=== PATIENT | female | born 1955 | race Caucasian/White ===

== ENCOUNTER 2016-06-05 09:53 | Emergency (ER) | payer MEDICARE ==
--- NOTE | 2016-06-05 10:29 | EDM.PDOC ---
ED HPI GENERAL MEDICAL PROBLEM - General Chief Complaint: ENT Problem Stated Complaint: TOOTH ACHE Time Seen by Provider: 06/05/16 10:25 Source of Information: Reports: Patient History Limitations: Reports: Other - History of Present Illness INITIAL COMMENTS - FREE TEXT/NARRATIVE: History of present illness: [61-year-old female comes in complaining of oral pain. Indicates that she has pain in the upper and lower jaw on the left there has been ongoing.] Review of systems: As per history of present illness and below otherwise all systems reviewed and negative. Past medical history: As per history of present illness and as reviewed below otherwise noncontributory. Surgical history: As per history of present illness and as reviewed below otherwise noncontributory. Social history: No reported history of drug or alcohol abuse. Family history: As per history of present illness and as reviewed below otherwise noncontributory. Physical exam: HEENT: Atraumatic, normocephalic, pupils reactive, negative for conjunctival pallor or scleral icterus, mucous membranes moist, throat clear, neck supple, nontender, trachea midline. Lungs: Clear to auscultation, breath sounds equal bilaterally, chest nontender. Heart: S1S2, regular, negative for clicks, rubs, or JVD. Abdomen: Soft, nondistended, nontender. Negative for masses or hepatosplenomegaly. Negative for costovertebral tenderness. Pelvis: Stable nontender. Genitourinary: Deferred. Rectal: Deferred. Extremities: Atraumatic, negative for cords or calf pain. Neurovascular unremarkable. Neuro: Awake, alert, oriented. Cranial nerves II through XII unremarkable. Cerebellum unremarkable. Motor and sensory unremarkable throughout. Exam nonfocal. Oral exam: On inspection patient has several missing teeth as well as multiple fillings in the 14 through 19 region. An area in the upper left, exhibiting area of erythema and potential abscess Diagnostics: [] Therapeutics: [] Impression: [Dental abscess] Plan: [Augmentin, brief run of T- 3] Definitive disposition and diagnosis as appropriate pending reevaluation and review of above. - Related Data Allergies Allergy/AdvReac Type Severity Reaction Status Date / Time meperidine HCl [From Demerol] Allergy Rash Verified 01/08/16 13:10 Home Meds: Home Meds Amoxicillin/Potassium Clav [Augmentin 875-125 Tablet] 1 each PO BID #20 tablet 06/05/16 [Rx] Past Medical History HEENT History: Reports: Other (see below) Other HEENT History: deaf Cardiovascular History: Reports: None Respiratory History: Reports: None Gastrointestinal History: Reports: Other (see below) Other Gastrointestinal History: Hernia left [employer] History: Reports: None Musculoskeletal History: Reports: None Neurological History: Reports: Migraines Psychiatric History: Reports: None Endocrine/Metabolic History: Reports: None Hematologic History: Reports: None Immunologic History: Reports: None Oncologic (Cancer) History: Reports: None Dermatologic History: Reports: None - Infectious Disease History Infectious Disease History: Reports: None - Past Surgical History Head Surgeries/Procedures: Reports: None Other HEENT Surgeries/Procedures: cochleor implant right ear. GI Surgical History: Reports: Hernia, inguinal Other GI Surgeries/Procedures: left Female Surgical History: Reports: section Social & Family History - Tobacco Use Smoking Status *Q: Never Smoker Second Hand Smoke Exposure: No - Caffeine Use Caffeine Use: Reports: Other - Recreational Drug Use Recreational Drug Use: No ED ROS GENERAL - Review of Systems Review Of Systems: See Below (See history of present illness) ED EXAM, GENERAL - Physical Exam Exam: See Below (See history of present illness) Course - Vital Signs Last Recorded V/S: Last Vital Signs Temp 36.5 C 06/05/16 10:06 Pulse 84 06/05/16 10:06 Resp 18 06/05/16 10:06 BP 214/109 H 06/05/16 10:06 Pulse Ox 98 06/05/16 10:06 Departure - Departure Time of Disposition: 10:30 Disposition: Home, Self-Care 01 Condition: good Clinical Impression: Dental abscess Prescriptions: Amoxicillin/Potassium Clav [Augmentin 875-125 Tablet] 1 each PO BID #20 tablet Referrals: PCP,None [Primary Care Provider] - Samantha River PA [Physician [employer]] - Forms: ED Department Discharge Additional Instructions: The following information is given to patients seen in the emergency department who are being discharged to home. This information is to outline your options for follow-up care. We provide all patients seen in our emergency department with a follow-up referral. The need for follow-up, as well as the timing and circumstances, are variable depending upon the specifics of your emergency department visit. If you don't have a primary care physician on staff, we will provide you with a referral. We always advise you to contact your personal physician following an emergency department visit to inform them of the circumstance of the visit and for follow-up with them and/or the need for any referrals to a consulting specialist. The emergency department will also refer you to a specialist when appropriate. This referral assures that you have the opportunity for follow-up care with a specialist. All of these measure are taken in an effort to provide you with optimal care, which includes your follow-up. Under all circumstances we always encourage you to contact your private physician who remains a resource for coordinating your care. When calling for follow-up care, please make the office aware that this follow-up is from your recent emergency room visit. If for any reason you are refused follow-up, please contact the [facility] Emergency Department at and asked to speak to the emergency department charge nurse. Take medication as directed Followup with the dentist MANDI Return to ER as needed as discussed
[2016-06-05 10:53] VITALS: BP 186/97
== END 2016-06-05 10:47 | disposition home or self-care (01) ==
LOC: MW.ED 09:53
DX: K04.7 Periapical abscess without sinus (principal); Z88.8 Allergy status to other drugs, medicaments and biological substances; Z98.890 Other specified postprocedural states
CPT/HCPCS: 99282; 99283

== ENCOUNTER 2016-09-18 14:25 | Emergency (ER) | payer MEDICARE, SELFPAY ==
--- NOTE | 2016-09-18 15:07 | EDM.PDOC ---
ED HPI GENERAL MEDICAL PROBLEM - General Chief Complaint: Headache Stated Complaint: MIGRANE Time Seen by Provider: 09/18/16 14:58 Source of Information: Reports: Patient History Limitations: Reports: No Limitations - History of Present Illness INITIAL COMMENTS - FREE TEXT/NARRATIVE: HISTORY AND PHYSICAL: [] 61-year-old female presenting with headache History of Present Illness: []Patient has been deaf and is we are using [employer] system to communicate. She does have a note with her stating that she was just informed that her son had committed suicide by hanging himself in [place]. She has had difficulty with sleeping for the last 2 days and increased anxiety. Headache began last night one episode of emesis She does report headache as being similar to migraines she has had in the past Patient did drive herself to the hospital Review of Systems: As per history of present illness and below otherwise all systems reviewed and negative. Past medical history: As per history of present illness and as reviewed below otherwise noncontributory. Surgical history: As per history of present illness and as reviewed below otherwise noncontributory. Social history: No reported history of drug or alcohol abuse. Family history: As per history of present illness and as reviewed below otherwise noncontributory. Physical exam: Alert and oriented female, and when signing answers appropriately. Finally teary -eyed HEENT: Atraumatic, normocehpalic, pupils reactive, negative for conjunctival pallor or scleral icterus, mucous membranes moist, throat clear, neck supple, nontender, trachea midline. Lungs: Clear to auscultation, breath sounds equal bilaterally, chest non tender. Heart: S1S2, regular, negative for clicks, rubs, or JVD. Abdomen: Soft, nondistended, nontender. Negative for masses or hepatossplenmegaly. Negative for costovertebral tenderness. Pelvis: Stable nontender. Genitourinary: Deferred. Rectal: Deferred Extremities: Atraumatic, negative for cords or calf pain. Neurovascular unremarkable. Neuro: Awake, alert, oriented. Cranial nerves II through XII unremarkable. Cerebellum unremarkable. Motor and sensory unremarkable throughout. Exam nonfocal. Diagnostics: [] Therapeutics: [IV fluids, Benadryl and Toradol] Impression: [Migraine headache Anxiety Grief ] Plan: [Home Rest when you get home Some medication will be given to help you sleep] Definitive disposition and diagnosis as appropriate pending reevaluation and review of above. Onset: Sudden Duration: Day(s): (1) Location: Reports: Head, Generalized Headache Pain Score (Numeric/FACES): 7 - Related Data Allergies Allergy/AdvReac Type Severity Reaction Status Date / Time meperidine HCl [From Demerol] Allergy Rash Verified 09/18/16 15:09 Past Medical History HEENT History: Reports: Other (See Below) Other HEENT History: deaf Cardiovascular History: Reports: None Respiratory History: Reports: None Gastrointestinal History: Reports: Other (See Below) Other Gastrointestinal History: Hernia left [employer] History: Reports: None Musculoskeletal History: Reports: None Neurological History: Reports: Migraines Psychiatric History: Reports: None Endocrine/Metabolic History: Reports: None Hematologic History: Reports: None Immunologic History: Reports: None Oncologic (Cancer) History: Reports: None Dermatologic History: Reports: None - Infectious Disease History Infectious Disease History: Reports: None - Past Surgical History GI Surgical History: Reports: Hernia, Inguinal Female Surgical History: Reports: Section Social & Family History - Tobacco Use Smoking Status *Q: Never Smoker Second Hand Smoke Exposure: No - Caffeine Use Caffeine Use: Reports: Other - Recreational Drug Use Recreational Drug Use: No ED ROS GENERAL - Review of Systems Review Of Systems: ROS reveals no pertinent complaints other than HPI. - Physical Exam Exam: See Below (See dictation) Course - Vital Signs Last Recorded V/S: Last Vital Signs Temp 36.3 C 09/18/16 15:07 Pulse 105 H 09/18/16 15:07 Resp 18 09/18/16 15:07 BP 182/122 H 09/18/16 15:07 Pulse Ox 98 09/18/16 15:07 - Orders/Labs/Meds Meds: Medications Discontinued Medications Generic Name Dose Route Start Last Admin Trade Name Freq PRN Reason Stop Dose Admin Diphenhydramine HCl 25 mg 09/18/16 15:10 Benadryl IVPUSH 09/18/16 15:11 ONETIME ONE Sodium Chloride 1,000 mls @ 999 mls/hr 09/18/16 15:10 Normal Saline IV 09/18/16 16:10 STAT ONE Ketorolac Tromethamine 30 mg 09/18/16 15:10 Toradol IVPUSH 09/18/16 15:11 ONETIME ONE Ketorolac Tromethamine 60 mg 09/18/16 15:22 Toradol IM 09/18/16 15:23 ONETIME ONE Ketorolac Tromethamine 30 mg 09/18/16 15:23 09/18/16 15:28 Toradol IM 09/18/16 15:24 30 mg ONETIME ONE Administration Ondansetron HCl 4 mg 09/18/16 15:10 Zofran IVPUSH 09/18/16 15:11 ONETIME ONE Sodium Chloride 10 ml 09/18/16 15:10 Saline Flush FLUSH ASDIRECTED PRN Keep Vein Open Sodium Chloride 2.5 ml 09/18/16 15:10 Saline Flush FLUSH ASDIRECTED PRN Keep Vein Open Departure - Departure Time of Disposition: 15:24 Disposition: Home, Self-Care 01 Condition: Good Clinical Impression: Tension-type headache - Discharge Information Referrals: PCP,None [Primary Care Provider] - Forms: ED Department Discharge Additional Instructions: The following information is given to patients seen in the emergency department who are being discharged to home. This information is to outline your options for follow-up care. We provide all patients seen in our emergency department with a follow-up referral. The need for follow-up, as well as the timing and circumstances, are variable depending upon the specifics of your emergency department visit. If you don't have a primary care physician on staff, we will provide you with a referral. We always advise you to contact your personal physician following an emergency department visit to inform them of the circumstance of the visit and for follow-up with them and/or the need for any referrals to a consulting specialist. The emergency department will also refer you to a specialist when appropriate. This referral assures that you have the opportunity for followup care with a specialist. All of these measure are taken in an effort to provide you with optimal care, which includes your followup. Under all circumstances we always encourage you to contact your private physician who remains a resource for coordinating your care. When calling for followup care, please make the office aware that this follow-up is from your recent emergency room visit. If for any reason you are refused follow-up, please contact the [facility] emergency department at and asked to speak to the emergency department charge nurse. Take the Ativan when you get home to help with her headache and sleep prescription was written for 0.5 mg one at bedtime for anxiety/insomnia number of 5 tablets no refill Follow-up with your primary care provider Grief support groups are available call Charity Cao at [phone]
[2016-09-18] MEDS ORDERED: Sodium Chloride 0.9% 2.5 ML Syringe FLUSH PRN (15:10)
[2016-09-18] MEDS ORDERED: Sodium Chloride 0.9% 10 ML Syringe FLUSH PRN (15:10)
[2016-09-18] MEDS ORDERED: Sodium Chloride 0.9% 1,000 ML IV ONE (15:10)
[2016-09-18] MEDS ORDERED: diphenhydrAMINE 50 MG/ML SDV IVPUSH ONE (15:10)
[2016-09-18] MEDS ORDERED: Ondansetron 4 MG/2 ML SDV IVPUSH ONE (15:10)
[2016-09-18] MEDS ORDERED: Ketorolac 30 MG/ML SDV IVPUSH ONE (15:10)
[2016-09-18] MEDS ORDERED: Ketorolac 60 MG/2 ML SDV IM ONE (15:22)
[2016-09-18] MEDS ORDERED: Ketorolac 30 MG/ML SDV IM ONE (15:23)
[2016-09-18 16:10] VITALS: BP 191/128
== END 2016-09-18 16:09 | disposition home or self-care (01) ==
LOC: MW.ED 14:25
DX: G44.209 Tension-type headache, unspecified, not intractable (principal); G43.909 Migraine, unspecified, not intractable, without status migrainosus; F41.9 Anxiety disorder, unspecified; F43.21 Adjustment disorder with depressed mood; Z88.8 Allergy status to other drugs, medicaments and biological substances
CPT/HCPCS: 96372; 99284; J1885; 99283

== ENCOUNTER 2019-05-07 02:09 | Inpatient (IN) | payer MEDICARE, SELFPAY ==
[2019-05-07] MEDS ORDERED: Sodium Chloride 0.9% 10 ML Syringe FLUSH PRN (02:29)
[2019-05-07] MEDS ORDERED: Sodium Chloride 0.9% 2.5 ML Syringe FLUSH PRN (02:29)
[2019-05-07] MEDS ORDERED: Sodium Chloride 0.9% 1,000 ML IV ONE ×2 (02:30→04:30)
[2019-05-07 02:53] LABS: BLOOD UREA NITROGEN,BUN 67 mg/dL (7.0-18.0); CARBON DIOXIDE,CO2 19.3 mmol/L (21.0-32.0); CHLORIDE,CL 96 mmol/L (98-107); GLUCOSE RANDOM 143 mg/dL (74-106); POTASSIUM,K 3.8 mmol/L (3.5-5.1); SODIUM,NA 131 mmol/L (136-145)
--- NOTE | 2019-05-07 03:04 | CR ---
INDICATION: Shortness of breath and fever TECHNIQUE: Chest 1 views COMPARISON: Chest x-ray 12/27/2017 FINDINGS: Cardiovascular and mediastinum: Normal heart size with aortic tortuosity. Mild right hilar and superior mediastinal prominence, probably exacerbated by rotation. Lungs and pleural spaces: No pleural effusion or pneumothorax. No acute consolidation. Bones and soft tissues: No significant findings. IMPRESSION: No acute pulmonary consolidation. Dictated by Rob Larose MD @ May 07 2019 3:01AM Signed by Dr. Rob Larose @ May 07 2019 3:04AM
[2019-05-07] MEDS ORDERED: cefTRIAXone 1 GM in Sodium Chloride 0.9% 50 ML IV ONE (05:56)
[2019-05-07] MEDS ORDERED: Sodium Chloride 0.9% 1,000 ML IV SCH (06:00)
[2019-05-07] MEDS ORDERED: Ondansetron 4 MG/2 ML SDV IVPUSH PRN (07:56)
[2019-05-07] MEDS: Acetaminophen 325 MG Tab PO PRN (09:11)
--- NOTE | 2019-05-07 10:32 | PCM.HP.2 ---
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 She reports she otherwise has felt fine, but has been very short of breath especially with exertion, mild cough, but non productive. No fevers or chills at home. No abdominal pain or dysuria. She reports stools have been normal, except for this morning, when she noticed the stool was blackish in color. She denies alcohol use. She does report taking Ibuprofen almost daily for arthritic pain for her back along with her Tramadol. She denies history of bleeding in the past, does not take anticoagulation. No vaginal bleeding.She denies increase in heartburn or GERD. No nausea or vomiting. She denies history Dm CAD or CVA. In the ED leukocytosis noted at 16,320, hgb 9.6 Na 131, Cl 976, BUN 67, C r 1.2 troponin negative EKG SR with no ST changes. CXR negative. She was admitted for dehydration and dyspnea. Upon further discussion and evaluation, patient likely has upper GI bleeding. Will change to inpatient and place on Protonix. Repeat labwork this morning, revealed hgb 7.5. Continues to be symptomatic. Will obtain Iron studies and peripheral smear. Transfusion today. - Related Data Allergies/Adverse Reactions: Allergies Allergy/AdvReac Type Severity Reaction Status Date / Time meperidine HCl [From Demerol] Allergy Rash Verified 05/07/19 02:17 Home Medications: Home Meds Aspirin [Ecotrin EC] 81 mg PO DAILY 05/07/19 [History] Lisinopril/Hydrochlorothiazide [Lisinopril-HCTZ 10-12.5 MG] 10 - 12.5 mg PO DAILY 05/07/19 [History] traMADol [Ultram] 50 mg PO TID PRN 05/07/19 [History] Past Medical History HEENT History: Reports: Other (See Below) Other HEENT History: deaf Cardiovascular History: Reports: Hypertension. Denies: Afib, Blood Clots/VTE/ DVT, CAD, ID, Pacemaker Respiratory History: Reports: None. Denies: Asthma, COPD Gastrointestinal History: Reports: Other (See Below) Other Gastrointestinal History: Hernia left Genitourinary History: Reports: None. 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 Denies: CVA, TIA Psychiatric History: Reports: None Endocrine/Metabolic History: Reports: None, Obesity/BMI 30+. Denies: Diabetes, Type II, Hypothyroidism Hematologic History: Reports: None Immunologic History: Reports: None Oncologic (Cancer) History: Reports: None Dermatologic History: Reports: None - Infectious Disease History Infectious Disease History: Reports: Chicken Pox, Meningitis (cause of deafness at 3 yo), Shingles - Past Surgical History Head Surgeries/Procedures: Reports: None HEENT Surgical History: Reports: None Cardiovascular Surgical History: Reports: None GI Surgical History: Reports: Hernia, Inguinal Female Surgical History: Reports: Section, Other (See Below) ( fibroid removed) Neurological Surgical History: Reports: None Social & Family History - Family History Family Medical History: Noncontributory - Tobacco Use Smoking Status *Q: Never Smoker Second Hand Smoke Exposure: No - Caffeine Use Caffeine Use: Reports: Coffee - Alcohol Use Alcohol Use History: No - Recreational Drug Use Recreational Drug Use: No - Living Situation & Occupation Occupation: Disabled H&P Review of Systems - Review of Systems: Review Of Systems: See Below General: Reports: Weakness, Fatigue. Denies: Fever, Chills HEENT: Reports: No Symptoms. Denies: Headaches, Sinus Congestion, Vertigo Pulmonary: Reports: Shortness of Breath, Cough. Denies: Sputum, Hemoptysis Cardiovascular: Reports: Dyspnea on Exertion, Lightheadedness. Denies: Chest Pain Gastrointestinal: Reports: Black Stool (started this morning.), Melena. Denies : Abdominal Pain, Bloody Stool, Diarrhea, Decreased Appetite, Nausea, Vomiting Genitourinary: Reports: No Symptoms. Denies: Dysuria, Frequency, Burning Musculoskeletal: Reports: No Symptoms. Denies: Neck Pain Psychiatric: Reports: No Symptoms Neurological: Reports: No Symptoms Hematologic/Lymphatic: Reports: No Symptoms Immunologic: Reports: No Symptoms Exam - Exam Exam: See Below - Vital Signs Vital Signs: Last Vital Signs Temp 97.8 F 05/07/19 08:10 Pulse 86 05/07/19 08:10 Resp 20 05/07/19 08:10 BP 127/78 05/07/19 08:10 Pulse Ox 97 05/07/19 08:10 Orthostatic Blood Pressure [ 101/67 Standing] Orthostatic Blood Pressure [ 123/69 Sitting] Orthostatic Blood Pressure [ 117/68 Supine] Weight: 90.718 kg - Exam Quality Assessment: DVT Prophylaxis (SCDs) General: Alert, Oriented, Cooperative HEENT: Conjunctiva Clear, Mucosa Moist & [place], Posterior Pharynx Clear Neck: Supple, Trachea Midline Lungs: Clear to Auscultation, Normal Respiratory Effort Cardiovascular: Regular Rate, Regular Rhythm, Normal S1, Normal S2 GI/Abdominal Exam: Normal Bowel Sounds, Soft, Non-Tender Rectal (Female) Exam: Normal Exam, Normal Rectal Tone, Black Stool, Heme + Stool. No: Hemorrhoids, Mass Extremities: Normal Inspection, Normal Range of Motion, Non-Tender, No Pedal Edema Neuro Extensive - Mental Status: Alert, Oriented x3 Neuro Extensive - Motor, Sensory, Reflexes: CN II-XII Intact, Normal Gait Psychiatric: Alert, Normal Affect, Normal Mood - Patient Data Lab Results Last 24 hrs: Laboratory Results - last 24 hr 05/07/19 05/07/19 05/07/19 Range/Units 02:15 02:15 02:15 WBC 16.32 H (4.0-11.0) K/uL RBC 3.08 L (4.30-5.90) M/uL Hgb 9.6 L (12.0-16.0) g/dL Hct 28.0 L (36.0-46.0) % MCV 90.9 (80.0-98.0) fL MCH 31.2 (27.0-32.0) pg MCHC 34.3 (31.0-37.0) g/dL RDW Std Deviation 43.7 (28.0-62.0) fl RDW Coeff of Kat 13 (11.0-15.0) % Plt Count 313 (150-400) K/uL MPV 10.00 (7.40-12.00) fL Neut % (Auto) 81.0 H (48.0-80.0) % Lymph % (Auto) 15.7 L (16.0-40.0) % [place] % (Auto) 3.1 (0.0-15.0) % Eos % (Auto) 0.1 (0.0-7.0) % Baso % (Auto) 0.1 (0.0-1.5) % Neut # (Auto) 13.2 H (1.4-5.7) K/uL Lymph # (Auto) 2.6 H (0.6-2.4) K/uL [place] # (Auto) 0.5 (0.0-0.8) K/uL Eos # (Auto) 0.0 (0.0-0.7) K/uL Baso # (Auto) 0.0 (0.0-0.1) K/uL Nucleated RBC % 0.0 /100WBC Nucleated RBCs # 0 K/uL Lactate 1.7 (0.20-2.00) mmol/L Sodium 131 L (136-145) mmol/L Potassium 3.8 (3.5-5.1) mmol/L Chloride 96 L (98-107) mmol/L Carbon Dioxide 19.3 L (21.0-32.0) mmol/L BUN 67 H (7.0-18.0) mg/dL Creatinine 1.2 H (0.6-1.0) mg/dL Est Cr Clr Drug Dosing TNP Estimated GFR (MDRD) 45.4 ml/min Glucose 143 H (74-106) mg/dL Calcium 8.5 (8.5-10.1) mg/dL Total Bilirubin 0.3 (0.2-1.0) mg/dL AST 11 L (15-37) IU/L ALT 18 (14-63) IU/L Alkaline Phosphatase 60 (46-116) U/L Troponin I (0.000-0.056) ng/mL Total Protein 6.7 (6.4-8.2) g/dL Albumin 3.5 (3.4-5.0) g/dL Globulin 3.2 (2.6-4.0) g/dL Albumin/Globulin Ratio 1.1 (0.9-1.6) TSH 3rd Generation 1.11 (0.36-3.74) uIU/mL Urine Color Urine Appearance Urine pH (5.0-8.0) Ur Specific [place] (1.001-1.035) Urine Protein (NEGATIVE) mg/dL Urine Glucose (UA) (NEGATIVE) mg/dL Urine Ketones (NEGATIVE) mg/dL Urine Occult Blood (NEGATIVE) Urine Nitrite (NEGATIVE) Urine Bilirubin (NEGATIVE) Urine Urobilinogen (<2.0) EU/dL Ur Leukocyte Esterase (NEGATIVE) 05/07/19 05/07/19 Range/Units 03:30 04:09 WBC (4.0-11.0) K/uL RBC (4.30-5.90) M/uL Hgb (12.0-16.0) g/dL Hct (36.0-46.0) % MCV (80.0-98.0) fL MCH (27.0-32.0) pg MCHC (31.0-37.0) g/dL RDW Std Deviation (28.0-62.0) fl RDW Coeff of Kat (11.0-15.0) % Plt Count (150-400) K/uL MPV (7.40-12.00) fL Neut % (Auto) (48.0-80.0) % Lymph % (Auto) (16.0-40.0) % [place] % (Auto) (0.0-15.0) % Eos % (Auto) (0.0-7.0) % Baso % (Auto) (0.0-1.5) % Neut # (Auto) (1.4-5.7) K/uL Lymph # (Auto) (0.6-2.4) K/uL [place] # (Auto) (0.0-0.8) K/uL Eos # (Auto) (0.0-0.7) K/uL Baso # (Auto) (0.0-0.1) K/uL Nucleated RBC % /100WBC Nucleated RBCs # K/uL Lactate (0.20-2.00) mmol/L Sodium (136-145) mmol/L Potassium (3.5-5.1) mmol/L Chloride (98-107) mmol/L Carbon Dioxide (21.0-32.0) mmol/L BUN (7.0-18.0) mg/dL Creatinine (0.6-1.0) mg/dL Est Cr Clr Drug Dosing Estimated GFR (MDRD) ml/min Glucose (74-106) mg/dL Calcium (8.5-10.1) mg/dL Total Bilirubin (0.2-1.0) mg/dL AST (15-37) IU/L ALT (14-63) IU/L Alkaline Phosphatase (46-116) U/L Troponin I < 0.050 (0.000-0.056) ng/mL Total Protein (6.4-8.2) g/dL Albumin (3.4-5.0) g/dL Globulin (2.6-4.0) g/dL Albumin/Globulin Ratio (0.9-1.6) TSH 3rd Generation (0.36-3.74) uIU/mL Urine Color YELLOW Urine Appearance CLEAR Urine pH 6.0 (5.0-8.0) Ur Specific [place] 1.015 (1.001-1.035) Urine Protein NEGATIVE (NEGATIVE) mg/dL Urine Glucose (UA) NEGATIVE (NEGATIVE) mg/dL Urine Ketones TRACE H (NEGATIVE) mg/dL Urine Occult Blood NEGATIVE (NEGATIVE) Urine Nitrite NEGATIVE (NEGATIVE) Urine Bilirubin NEGATIVE (NEGATIVE) Urine Urobilinogen 0.2 (<2.0) EU/dL Ur Leukocyte Esterase NEGATIVE (NEGATIVE) Result Diagrams: 05/07/19 10:51 05/07/19 10:51 Sánchez Results Last 24 hrs: Microbiology 05/07/19 04:09 Anaerobic Blood Culture - Final Blood - Venous - Lab Draw 05/07/19 03:55 Anaerobic Blood Culture - Final Blood - Venous Sepsis Event Note - Evaluation Sepsis Screening Result: No Definite Risk - Focused Exam Vital Signs: Vital Signs Temp Pulse Resp BP Pulse Ox 05/07/19 08:10 97.8 F 86 20 127/78 97 05/07/19 06:23 97.5 F 89 18 119/73 97 05/07/19 04:35 97.3 F 05/07/19 03:51 101 H 18 132/95 H 96 05/07/19 02:11 97.2 F 130 H 22 H 132/86 100 Date Exam was Performed: 05/07/19 Time Exam was Performed: 12:44 - Problem List (1) Upper GI bleed SNOMED Code(s): 27984509 ICD Code: K92.2 - GASTROINTESTINAL HEMORRHAGE, UNSPECIFIED Status: Acute Current Visit: Yes (2) Symptomatic anemia SNOMED Code(s): 560091471 ICD Code: D64.9 - ANEMIA, UNSPECIFIED Status: Acute Current Visit: Yes (3) Dehydration SNOMED Code(s): 76512765 ICD Code: E86.0 - DEHYDRATION Status: Acute Current Visit: Yes (4) Deaf SNOMED Code(s): 19930741 ICD Code: H91.90 - UNSPECIFIED HEARING LOSS, UNSPECIFIED EAR Status: Chronic Current Visit: Yes Qualifiers: Laterality: bilateral Qualified Code(s): H91.93 - Unspecified hearing loss , bilateral (5) Hypokalemia SNOMED Code(s): 10724034 ICD Code: E87.6 - HYPOKALEMIA Status: Acute Current Visit: Yes Problem List Initiated/Reviewed/Updated: Yes Orders Last 24hrs: Active Orders 24 hr Category Date Time Status Admission Status [Patient Status] [ADT] Routine ADT 05/07/19 07:47 Active EKG Documentation Completion [RC] STAT Care 05/07/19 02:29 Active Intake and Output [RC] QSHIFT Care 05/07/19 07:56 Active Orthostatic Vital Signs [RC] ASDIRECTED Care 05/07/19 09:35 Active Oxygen Therapy [RC] PRN Care 05/07/19 07:56 Active Telemetry Monitoring [Cardiac Monitoring] [RC] . Care 05/07/19 08:00 Active DIRECTED Up With Assistance [RC] ASDIRECTED Care 05/07/19 07:56 Active VTE/DVT Education [RC] PER UNIT ROUTINE Care 05/07/19 07:56 Active Vital Signs [RC] Q4H Care 05/07/19 07:56 Active Regular Diet [DIET] Diet 05/07/19 Breakfast Active BASIC METABOLIC PANEL,BMP [CHEM] AM Lab 05/08/19 05:11 Ordered BMP [BASIC METABOLIC PANEL,BMP] [CHEM] Routine Lab 05/07/19 10:26 Ordered CBC WITH AUTO DIFF [HEME] AM Lab 05/08/19 05:11 Ordered CBC WITH AUTO DIFF [HEME] Routine Lab 05/07/19 10:28 Ordered CULTURE BLOOD [BC] Stat Lab 05/07/19 03:55 Results CULTURE BLOOD [BC] Stat Lab 05/07/19 04:09 Results Hemoccult [OCCULT BLOOD DIAGNOSTIC] [OP] Routine Lab 05/07/19 10:27 Ordered MAGNESIUM [CHEM] AM Lab 05/08/19 05:11 Ordered TROPONIN I [CHEM] Q6H Lab 05/07/19 10:26 Ordered TROPONIN I [CHEM] Q6H Lab 05/07/19 16:26 Ordered Acetaminophen [Tylenol] Med 05/07/19 07:56 Active 650 mg PO Q4H PRN Ondansetron [Zofran] Med 05/07/19 07:56 Active 4 mg IVPUSH Q4H PRN Sodium Chloride 0.9% [Normal Saline] 1,000 ml Med 05/07/19 06:00 Active IV ASDIRECTED Sodium Chloride 0.9% [Saline Flush] Med 05/07/19 02:29 Active 10 ml FLUSH ASDIRECTED PRN Sodium Chloride 0.9% [Saline Flush] Med 05/07/19 02:29 Active 2.5 ml FLUSH ASDIRECTED PRN Blood Culture x2 Reflex Set [OM.PC] Stat Oth 05/07/19 03:50 Ordered Saline Lock Insert [OM.PC] Stat Oth 05/07/19 02:29 Ordered Resuscitation Status Routine Resus Stat 05/07/19 07:56 Ordered Medication Orders Acetaminophen (Tylenol) 650 mg PO Q4H PRN PRN Reason: Pain (Mild 1-3)/fever Last Admin: 05/07/19 09:11 Dose: 650 mg Sodium Chloride (Normal Saline) 1,000 mls @ 125 mls/hr IV ASDIRECTED SHEMAR Last Infusion: 05/07/19 08:20 Dose: 125 mls/hr Admin: 05/07/19 06:15 Dose: 125 mls/hr Ondansetron HCl (Zofran) 4 mg IVPUSH Q4H PRN PRN Reason: Nausea Sodium Chloride (Saline Flush) 10 ml FLUSH ASDIRECTED PRN PRN Reason: Keep Vein Open Sodium Chloride (Saline Flush) 2.5 ml FLUSH ASDIRECTED PRN PRN Reason: Keep Vein Open Assessment/Plan Comment:: This 63 year old female admitted with Upper GI bleed and symptomatic anemia 1. Upper GI bleeding & symptomatic anemia - Melena noted on rectal exam, heme positive - Give Protonix 80 mg no then Continue Protonix 40 mg IV BID - Transfuse 2 units PRBCS now and recheck HH after transfusion - Consulted Dr Hebert for EGD, she will see patient today. - NPO for now - Likely secondary to NSAID use, advised to stop this, she verbalized understanding. - Iron studies and Peripheral smear pending. - Telemetry - 2 large bore IVs at all times. 2. Hypokalemia - Replace in IV fluids now due to NPO. - NS 40 KCL x 1 - Check Mag - Recheck in am VTE prophylaxis: SCDs only due to bleeding Consults: Dr Hebert Code Status: FULL Dispo: Will make inpatient due to GI bleeding - Mortality Measure Prognosis:: Good
[2019-05-07] MEDS ORDERED: Pantoprazole 40 MG in Sodium Chloride 0.9% 10 ML IV SCH ×2 (11:15→23:00)
[2019-05-07 11:26] LABS: BLOOD UREA NITROGEN,BUN 51 mg/dL (7.0-18.0); CARBON DIOXIDE,CO2 20.8 mmol/L (21.0-32.0); CHLORIDE,CL 101 mmol/L (98-107); GLUCOSE RANDOM 187 mg/dL (74-106); POTASSIUM,K 3.1 mmol/L (3.5-5.1); SODIUM,NA 134 mmol/L (136-145)
[2019-05-07] MEDS ORDERED: Sodium Chloride 0.9% with KCl 1,000 ML IV ONE (11:51)
[2019-05-07] MEDS ORDERED: Pantoprazole 80 MG in Sodium Chloride 0.9% 10 ML IV ONE (11:52)
--- NOTE | 2019-05-07 15:12 | PCM.CONS ---
H&P History of Present Illness - General Date of Service: 05/07/19 Admit Problem/Dx: Admission Diagnosis/Problem Admission Diagnosis/Problem Dizziness of unknown cause Source of Information: Patient History Limitations: Reports: No Limitations - History of Present Illness Initial Comments - Free Text/Narative: Patient is a 63 year old female who presented to the ER with shortness of breath and lightheadedness. She was doing well and denied any recent illnesses until a couple days ago when these symptoms started. She noticed it with position changes. Denied fevers, chills, heartburn, indigestions, epigastric pain, nausea or vomiting, but did have sense of fecal urgency. Her stools have been normal, except for this morning, when she noticed the stool was blackish in color. She has never had a colonoscopy. She denies alcohol use. She does report taking Ibuprofen almost daily for arthritic pain for her back along with her Tramadol. She denies easy bruising, bleeding and is not on anticoagulation. No menorrhagia. In the ED leukocytosis noted at 16,320, hgb 9.6 Na 131, Cl 976, BUN 67, C r 1.2 troponin negative EKG SR with no ST changes. CXR negative. She was admitted for dehydration and dyspnea. Her repeat labs showed a 2 gm drop in her hemoglobin. She had a positive FOBT. The medicine team has ordered blood and is giving IV PPI and fluids. - Related Data Allergies/Adverse Reactions: Allergies Allergy/AdvReac Type Severity Reaction Status Date / Time meperidine HCl [From Demerol] Allergy Rash Verified 05/07/19 02:17 Home Medications: Home Meds Aspirin [Ecotrin EC] 81 mg PO DAILY 05/07/19 [History] Lisinopril/Hydrochlorothiazide [Lisinopril-HCTZ 10-12.5 MG] 10 - 12.5 mg PO DAILY 05/07/19 [History] traMADol [Ultram] 50 mg PO TID PRN 05/07/19 [History] Past Medical History HEENT History: Reports: Other (See Below) Other HEENT History: deaf Cardiovascular History: Reports: Hypertension. Denies: Afib, Blood Clots/VTE/ DVT, CAD, SC, Pacemaker Respiratory History: Reports: None. Denies: Asthma, COPD Gastrointestinal History: Reports: Other (See Below) Other Gastrointestinal History: Hernia left Genitourinary History: Reports: None. 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 Denies: CVA, TIA Psychiatric History: Reports: None Endocrine/Metabolic History: Reports: None, Obesity/BMI 30+. Denies: Diabetes, Type II, Hypothyroidism Hematologic History: Reports: None Immunologic History: Reports: None Oncologic (Cancer) History: Reports: None Dermatologic History: Reports: None - Infectious Disease History Infectious Disease History: Reports: Chicken Pox, Meningitis (cause of deafness at 3 yo), Shingles - Past Surgical History Head Surgeries/Procedures: Reports: None HEENT Surgical History: Reports: None Cardiovascular Surgical History: Reports: None GI Surgical History: Reports: Hernia, Inguinal Female Surgical History: Reports: Section, Other (See Below) ( fibroid removed) Neurological Surgical History: Reports: None Social & Family History - Family History Family Medical History: Noncontributory - Tobacco Use Smoking Status *Q: Never Smoker Used Tobacco, but Quit: Yes Month/Year Tobacco Last Used: 1975 Second Hand Smoke Exposure: No - Caffeine Use Caffeine Use: Reports: Coffee - Recreational Drug Use Recreational Drug Use: No - Living Situation & Occupation Occupation: Disabled H&P Review of Systems - Review of Systems: Review Of Systems: Comprehensive ROS is negative, except as noted in HPI. Exam - Exam Exam: See Below - Vital Signs Vital Signs: Last Vital Signs Temp 36.7 C 05/07/19 12:12 Pulse 105 H 05/07/19 12:12 Resp 16 05/07/19 12:12 BP 121/73 05/07/19 12:12 Pulse Ox 95 05/07/19 12:10 Orthostatic Blood Pressure [ 101/67 Standing] Orthostatic Blood Pressure [ 123/69 Sitting] Orthostatic Blood Pressure [ 117/68 Supine] Weight: 90.718 kg - Exam General: Alert, Oriented, Cooperative HEENT: Conjunctiva Clear, Mucosa Moist & [place], Posterior Pharynx Clear Neck: Supple, Trachea Midline Lungs: Clear to Auscultation, Normal Respiratory Effort Cardiovascular: Regular Rate, Regular Rhythm GI/Abdominal Exam: Soft, Non-Tender, No Distention, No Mass, Other (can smell melena from previous BM) - Patient Data Lab Results Last 24 hrs: Laboratory Results - last 24 hr 05/07/19 05/07/19 05/07/19 Range/Units 02:15 02:15 02:15 WBC 16.32 H (4.0-11.0) K/uL RBC 3.08 L (4.30-5.90) M/uL Hgb 9.6 L (12.0-16.0) g/dL Hct 28.0 L (36.0-46.0) % MCV 90.9 (80.0-98.0) fL MCH 31.2 (27.0-32.0) pg MCHC 34.3 (31.0-37.0) g/dL RDW Std Deviation 43.7 (28.0-62.0) fl RDW Coeff of Kat 13 (11.0-15.0) % Plt Count 313 (150-400) K/uL MPV 10.00 (7.40-12.00) fL Neut % (Auto) 81.0 H (48.0-80.0) % Lymph % (Auto) 15.7 L (16.0-40.0) % Potter % (Auto) 3.1 (0.0-15.0) % Eos % (Auto) 0.1 (0.0-7.0) % Baso % (Auto) 0.1 (0.0-1.5) % Neut # (Auto) 13.2 H (1.4-5.7) K/uL Lymph # (Auto) 2.6 H (0.6-2.4) K/uL Potter # (Auto) 0.5 (0.0-0.8) K/uL Eos # (Auto) 0.0 (0.0-0.7) K/uL Baso # (Auto) 0.0 (0.0-0.1) K/uL Nucleated RBC % 0.0 /100WBC Nucleated RBCs # 0 K/uL Smear Path Review Absolute Retic (20-80) K/uL Percent Retic (0.5-1.5) % Immature Retic Fraction % Lactate 1.7 (0.20-2.00) mmol/L Sodium 131 L (136-145) mmol/L Potassium 3.8 (3.5-5.1) mmol/L Chloride 96 L (98-107) mmol/L Carbon Dioxide 19.3 L (21.0-32.0) mmol/L BUN 67 H (7.0-18.0) mg/dL Creatinine 1.2 H (0.6-1.0) mg/dL Est Cr Clr Drug Dosing TNP Estimated GFR (MDRD) 45.4 ml/min Glucose 143 H (74-106) mg/dL Calcium 8.5 (8.5-10.1) mg/dL Magnesium (1.8-2.4) mg/dL Iron (50-175) ug/dL TIBC (250-450) ug/dL % Saturation (20-55) % Transferrin (200-400) ug/dL Ferritin (8-252) ng/mL Total Bilirubin 0.3 (0.2-1.0) mg/dL AST 11 L (15-37) IU/L ALT 18 (14-63) IU/L Alkaline Phosphatase 60 (46-116) U/L Troponin I (0.000-0.056) ng/mL Total Protein 6.7 (6.4-8.2) g/dL Albumin 3.5 (3.4-5.0) g/dL Globulin 3.2 (2.6-4.0) g/dL Albumin/Globulin Ratio 1.1 (0.9-1.6) Vitamin B12 (193-986) pg/mL Folate (8.60-58.90) ng/mL TSH 3rd Generation 1.11 (0.36-3.74) uIU/mL Urine Color Urine Appearance Urine pH (5.0-8.0) Ur Specific [place] (1.001-1.035) Urine Protein (NEGATIVE) mg/dL Urine Glucose (UA) (NEGATIVE) mg/dL Urine Ketones (NEGATIVE) mg/dL Urine Occult Blood (NEGATIVE) Urine Nitrite (NEGATIVE) Urine Bilirubin (NEGATIVE) Urine Urobilinogen (<2.0) EU/dL Ur Leukocyte Esterase (NEGATIVE) Blood Type Antibody Screen Crossmatch 05/07/19 05/07/19 05/07/19 Range/Units 03:30 04:09 10:51 WBC (4.0-11.0) K/uL RBC (4.30-5.90) M/uL Hgb (12.0-16.0) g/dL Hct (36.0-46.0) % MCV (80.0-98.0) fL MCH (27.0-32.0) pg MCHC (31.0-37.0) g/dL RDW Std Deviation (28.0-62.0) fl RDW Coeff of Kat (11.0-15.0) % Plt Count (150-400) K/uL MPV (7.40-12.00) fL Neut % (Auto) (48.0-80.0) % Lymph % (Auto) (16.0-40.0) % Potter % (Auto) (0.0-15.0) % Eos % (Auto) (0.0-7.0) % Baso % (Auto) (0.0-1.5) % Neut # (Auto) (1.4-5.7) K/uL Lymph # (Auto) (0.6-2.4) K/uL [place] # (Auto) (0.0-0.8) K/uL Eos # (Auto) (0.0-0.7) K/uL Baso # (Auto) (0.0-0.1) K/uL Nucleated RBC % /100WBC Nucleated RBCs # K/uL Smear Path Review Absolute Retic (20-80) K/uL Percent Retic (0.5-1.5) % Immature Retic Fraction % Lactate (0.20-2.00) mmol/L Sodium 134 L (136-145) mmol/L Potassium 3.1 L (3.5-5.1) mmol/L Chloride 101 (98-107) mmol/L Carbon Dioxide 20.8 L (21.0-32.0) mmol/L BUN 51 H (7.0-18.0) mg/dL Creatinine 1.2 H (0.6-1.0) mg/dL Est Cr Clr Drug Dosing 45.79 Estimated GFR (MDRD) 45.4 ml/min Glucose 187 H (74-106) mg/dL Calcium 7.7 L (8.5-10.1) mg/dL Magnesium (1.8-2.4) mg/dL Iron (50-175) ug/dL TIBC (250-450) ug/dL % Saturation (20-55) % Transferrin (200-400) ug/dL Ferritin (8-252) ng/mL Total Bilirubin (0.2-1.0) mg/dL AST (15-37) IU/L ALT (14-63) IU/L Alkaline Phosphatase (46-116) U/L Troponin I < 0.050 < 0.050 (0.000-0.056) ng/mL Total Protein (6.4-8.2) g/dL Albumin (3.4-5.0) g/dL Globulin (2.6-4.0) g/dL Albumin/Globulin Ratio (0.9-1.6) Vitamin B12 (193-986) pg/mL Folate (8.60-58.90) ng/mL TSH 3rd Generation (0.36-3.74) uIU/mL Urine Color YELLOW Urine Appearance CLEAR Urine pH 6.0 (5.0-8.0) Ur Specific [place] 1.015 (1.001-1.035) Urine Protein NEGATIVE (NEGATIVE) mg/dL Urine Glucose (UA) NEGATIVE (NEGATIVE) mg/dL Urine Ketones TRACE H (NEGATIVE) mg/dL Urine Occult Blood NEGATIVE (NEGATIVE) Urine Nitrite NEGATIVE (NEGATIVE) Urine Bilirubin NEGATIVE (NEGATIVE) Urine Urobilinogen 0.2 (<2.0) EU/dL Ur Leukocyte Esterase NEGATIVE (NEGATIVE) Blood Type Antibody Screen Crossmatch 05/07/19 05/07/19 05/07/19 Range/Units 10:51 10:51 10:51 WBC 14.78 H (4.0-11.0) K/uL RBC 2.41 L 2.37 L (4.30-5.90) M/uL Hgb 7.5 L (12.0-16.0) g/dL Hct 22.2 L (36.0-46.0) % MCV 92.1 (80.0-98.0) fL MCH 31.1 (27.0-32.0) pg MCHC 33.8 (31.0-37.0) g/dL RDW Std Deviation 44.7 (28.0-62.0) fl RDW Coeff of Kat 13 (11.0-15.0) % Plt Count 274 (150-400) K/uL MPV 10.00 (7.40-12.00) fL Neut % (Auto) 76.2 (48.0-80.0) % Lymph % (Auto) 19.8 (16.0-40.0) % [place] % (Auto) 3.7 (0.0-15.0) % Eos % (Auto) 0.1 (0.0-7.0) % Baso % (Auto) 0.2 (0.0-1.5) % Neut # (Auto) 11.3 H (1.4-5.7) K/uL Lymph # (Auto) 2.9 H (0.6-2.4) K/uL [place] # (Auto) 0.6 (0.0-0.8) K/uL Eos # (Auto) 0.0 (0.0-0.7) K/uL Baso # (Auto) 0.0 (0.0-0.1) K/uL Nucleated RBC % 0.0 /100WBC Nucleated RBCs # 0 K/uL Smear Path Review Absolute Retic 74.40 (20-80) K/uL Percent Retic 3.1 H (0.5-1.5) % Immature Retic Fraction 13 % Lactate (0.20-2.00) mmol/L Sodium (136-145) mmol/L Potassium (3.5-5.1) mmol/L Chloride (98-107) mmol/L Carbon Dioxide (21.0-32.0) mmol/L BUN (7.0-18.0) mg/dL Creatinine (0.6-1.0) mg/dL Est Cr Clr Drug Dosing Estimated GFR (MDRD) ml/min Glucose (74-106) mg/dL Calcium (8.5-10.1) mg/dL Magnesium (1.8-2.4) mg/dL Iron 110 (50-175) ug/dL TIBC 217 L (250-450) ug/dL % Saturation 50.69 (20-55) % Transferrin 152 L (200-400) ug/dL Ferritin 80 (8-252) ng/mL Total Bilirubin (0.2-1.0) mg/dL AST (15-37) IU/L ALT (14-63) IU/L Alkaline Phosphatase (46-116) U/L Troponin I (0.000-0.056) ng/mL Total Protein (6.4-8.2) g/dL Albumin (3.4-5.0) g/dL Globulin (2.6-4.0) g/dL Albumin/Globulin Ratio (0.9-1.6) Vitamin B12 (193-986) pg/mL Folate (8.60-58.90) ng/mL TSH 3rd Generation (0.36-3.74) uIU/mL Urine Color Urine Appearance Urine pH (5.0-8.0) Ur Specific [place] (1.001-1.035) Urine Protein (NEGATIVE) mg/dL Urine Glucose (UA) (NEGATIVE) mg/dL Urine Ketones (NEGATIVE) mg/dL Urine Occult Blood (NEGATIVE) Urine Nitrite (NEGATIVE) Urine Bilirubin (NEGATIVE) Urine Urobilinogen (<2.0) EU/dL Ur Leukocyte Esterase (NEGATIVE) Blood Type Antibody Screen Crossmatch 05/07/19 05/07/19 05/07/19 Range/Units 10:51 10:51 10:51 WBC (4.0-11.0) K/uL RBC (4.30-5.90) M/uL Hgb (12.0-16.0) g/dL Hct (36.0-46.0) % MCV (80.0-98.0) fL MCH (27.0-32.0) pg MCHC (31.0-37.0) g/dL RDW Std Deviation (28.0-62.0) fl RDW Coeff of Kat (11.0-15.0) % Plt Count (150-400) K/uL MPV (7.40-12.00) fL Neut % (Auto) (48.0-80.0) % Lymph % (Auto) (16.0-40.0) % [place] % (Auto) (0.0-15.0) % Eos % (Auto) (0.0-7.0) % Baso % (Auto) (0.0-1.5) % Neut # (Auto) (1.4-5.7) K/uL Lymph # (Auto) (0.6-2.4) K/uL [place] # (Auto) (0.0-0.8) K/uL Eos # (Auto) (0.0-0.7) K/uL Baso # (Auto) (0.0-0.1) K/uL Nucleated RBC % /100WBC Nucleated RBCs # K/uL Smear Path Review SENT TO PATHOLOGY Absolute Retic (20-80) K/uL Percent Retic (0.5-1.5) % Immature Retic Fraction % Lactate (0.20-2.00) mmol/L Sodium (136-145) mmol/L Potassium (3.5-5.1) mmol/L Chloride (98-107) mmol/L Carbon Dioxide (21.0-32.0) mmol/L BUN (7.0-18.0) mg/dL Creatinine (0.6-1.0) mg/dL Est Cr Clr Drug Dosing Estimated GFR (MDRD) ml/min Glucose (74-106) mg/dL Calcium (8.5-10.1) mg/dL Magnesium 1.8 (1.8-2.4) mg/dL Iron (50-175) ug/dL TIBC (250-450) ug/dL % Saturation (20-55) % Transferrin (200-400) ug/dL Ferritin (8-252) ng/mL Total Bilirubin (0.2-1.0) mg/dL AST (15-37) IU/L ALT (14-63) IU/L Alkaline Phosphatase (46-116) U/L Troponin I (0.000-0.056) ng/mL Total Protein (6.4-8.2) g/dL Albumin (3.4-5.0) g/dL Globulin (2.6-4.0) g/dL Albumin/Globulin Ratio (0.9-1.6) Vitamin B12 271 (193-986) pg/mL Folate 16.20 (8.60-58.90) ng/mL TSH 3rd Generation (0.36-3.74) uIU/mL Urine Color Urine Appearance Urine pH (5.0-8.0) Ur Specific [place] (1.001-1.035) Urine Protein (NEGATIVE) mg/dL Urine Glucose (UA) (NEGATIVE) mg/dL Urine Ketones (NEGATIVE) mg/dL Urine Occult Blood (NEGATIVE) Urine Nitrite (NEGATIVE) Urine Bilirubin (NEGATIVE) Urine Urobilinogen (<2.0) EU/dL Ur Leukocyte Esterase (NEGATIVE) Blood Type Antibody Screen Crossmatch 05/07/19 Range/Units 11:50 WBC (4.0-11.0) K/uL RBC (4.30-5.90) M/uL Hgb (12.0-16.0) g/dL Hct (36.0-46.0) % MCV (80.0-98.0) fL MCH (27.0-32.0) pg MCHC (31.0-37.0) g/dL RDW Std Deviation (28.0-62.0) fl RDW Coeff of Kat (11.0-15.0) % Plt Count (150-400) K/uL MPV (7.40-12.00) fL Neut % (Auto) (48.0-80.0) % Lymph % (Auto) (16.0-40.0) % [place] % (Auto) (0.0-15.0) % Eos % (Auto) (0.0-7.0) % Baso % (Auto) (0.0-1.5) % Neut # (Auto) (1.4-5.7) K/uL Lymph # (Auto) (0.6-2.4) K/uL [place] # (Auto) (0.0-0.8) K/uL Eos # (Auto) (0.0-0.7) K/uL Baso # (Auto) (0.0-0.1) K/uL Nucleated RBC % /100WBC Nucleated RBCs # K/uL Smear Path Review Absolute Retic (20-80) K/uL Percent Retic (0.5-1.5) % Immature Retic Fraction % Lactate (0.20-2.00) mmol/L Sodium (136-145) mmol/L Potassium (3.5-5.1) mmol/L Chloride (98-107) mmol/L Carbon Dioxide (21.0-32.0) mmol/L BUN (7.0-18.0) mg/dL Creatinine (0.6-1.0) mg/dL Est Cr Clr Drug Dosing Estimated GFR (MDRD) ml/min Glucose (74-106) mg/dL Calcium (8.5-10.1) mg/dL Magnesium (1.8-2.4) mg/dL Iron (50-175) ug/dL TIBC (250-450) ug/dL % Saturation (20-55) % Transferrin (200-400) ug/dL Ferritin (8-252) ng/mL Total Bilirubin (0.2-1.0) mg/dL AST (15-37) IU/L ALT (14-63) IU/L Alkaline Phosphatase (46-116) U/L Troponin I (0.000-0.056) ng/mL Total Protein (6.4-8.2) g/dL Albumin (3.4-5.0) g/dL Globulin (2.6-4.0) g/dL Albumin/Globulin Ratio (0.9-1.6) Vitamin B12 (193-986) pg/mL Folate (8.60-58.90) ng/mL TSH 3rd Generation (0.36-3.74) uIU/mL Urine Color Urine Appearance Urine pH (5.0-8.0) Ur Specific [place] (1.001-1.035) Urine Protein (NEGATIVE) mg/dL Urine Glucose (UA) (NEGATIVE) mg/dL Urine Ketones (NEGATIVE) mg/dL Urine Occult Blood (NEGATIVE) Urine Nitrite (NEGATIVE) Urine Bilirubin (NEGATIVE) Urine Urobilinogen (<2.0) EU/dL Ur Leukocyte Esterase (NEGATIVE) Blood Type A POSITIVE Antibody Screen NEGATIVE Crossmatch See Detail Result Diagrams: 05/07/19 10:51 05/07/19 10:51 Sánchez Results Last 24 hrs: Microbiology 05/07/19 10:48 Stool Occult Blood (SÁNCHEZ) - Final Stool / Feces POSITIVE OCCULT BLOOD REFERENCE RANGE: NEGATIVE 05/07/19 04:09 Anaerobic Blood Culture - Final Blood - Venous - Lab Draw 05/07/19 03:55 Anaerobic Blood Culture - Final Blood - Venous Sepsis Event Note - Evaluation Sepsis Screening Result: No Definite Risk - Focused Exam Vital Signs: Vital Signs Temp Temp Pulse Resp BP Pulse Ox Pulse Ox 05/07/19 12:12 36.7 C 105 H 16 121/73 05/07/19 12:10 95 05/07/19 08:10 36.6 C 86 20 127/78 97 05/07/19 06:23 36.4 C 89 18 119/73 97 05/07/19 04:35 36.3 C 05/07/19 03:51 101 H 18 132/95 H 96 Date Exam was Performed: 05/07/19 Time Exam was Performed: 15:13 Consult PN Assessment/Plan Procedures: Procedures COMPLETE CBC W/AUTO DIFF WBC (03/15/17) COMPREHEN METABOLIC PANEL (06/18/17) CT ABD & PELV 1/> REGNS (03/19/17) CT NECK SPINE W/O DYE (06/21/17) CT UPPER EXTREMITY W/O DYE (06/18/17) EMERGENCY DEPT VISIT (09/18/16) EMERGENCY DEPT VISIT (06/05/16) PROTEIN E-PHORESIS SERUM (06/18/17) ROUTINE VENIPUNCTURE (06/18/17) THER/PROPH/DIAG INJ SC/IM (09/18/16) X-RAY EXAM HIP UNI 2-3 VIEWS (03/15/17) X-RAY EXAM NECK SPINE 2-3 VW (06/18/17) X-RAY EXAM OF ANKLE (03/15/17) X-RAY EXAM OF FEMUR 2/> (03/19/17) X-RAY EXAM OF SHOULDER (06/18/17) X-RAY EXAM UNILAT RIBS/CHEST (12/27/17) (1) Dehydration SNOMED Code(s): 27190578 Code(s): E86.0 - DEHYDRATION Current Visit: Yes (2) Symptomatic anemia SNOMED Code(s): 822152489 Code(s): D64.9 - ANEMIA, UNSPECIFIED Current Visit: Yes (3) Upper GI bleed SNOMED Code(s): 60126413 Code(s): K92.2 - GASTROINTESTINAL HEMORRHAGE, UNSPECIFIED Current Visit: Yes Problem List Initiated/Reviewed/Updated: Yes Plan: I explained the pathophysiology of upper GI bleeds. We discussed the need for a diagnostic EGD with biopsy. I explained the procedure, expected perioperative course and risks including bleeding or perforation. She verbalized understanding and wishes to proceed. Ok to have clear liquids today. Continue current medical therapy. NPO starting at 8 am tomorrow.
[2019-05-07] MEDS: traMADol 50 MG Tab PO PRN ×2 (15:37→23:36)
--- NOTE | 2019-05-07 19:36 | PCM.PRNOTE ---
- Free Text/Narrative Note: Called to patient's room to place IV after multiple attempts by nurses to replace an infiltrated line. Utilizing ultrasound guidance, placed 20 g catheter into right basilic vein just proximal to the anticubital space. Received flashback, IV infiltrated when flushed. Placed 20 g into upper basilic vein, received flashback, IV infiltrated when flushed. Repositioned patient. Placed 18 g into proximal cephalic vein. Received flashback, able to flush. IV patent. Flushed to confirm placement. Placed dressing over IV site and secured line. Started fluids. IV continued to be patent. Total time - [id number] = 35 minutes. Assisted by patient's nurse.
--- NOTE | 2019-05-07 19:48 | PCM.PRNOTE ---
- Free Text/Narrative Note: Notified by patient's nurse that IV placed by ultrasound infiltrated. Discussed the case with the nurse and am and pm charge nurses. We decided that since patient has been stuck so many times it would be beneficial to the patient to utilize the existing IV, currently used for blood transfusion, to administer fluids once the blood is done. This would give patient a break from being stuck too many times. Once patient is better hydrated, will reattempt placement of 2nd IV.
[2019-05-08 04:23] LABS: BLOOD UREA NITROGEN,BUN 48 mg/dL (7.0-18.0); CARBON DIOXIDE,CO2 19.3 mmol/L (21.0-32.0); CHLORIDE,CL 108 mmol/L (98-107); GLUCOSE RANDOM 121 mg/dL (74-106); POTASSIUM,K 3.7 mmol/L (3.5-5.1); SODIUM,NA 138 mmol/L (136-145)
--- NOTE | 2019-05-08 07:45 | PCM.CONSN ---
- General Info Date of Service: 05/08/19 Subjective Update: Patient was given 2 units of pRBCs yesterday. Overnight her vitals were stable. Early this morning the patient had a coffee ground emesis. Her hemoglobin was 5.9. She complains of some upper abdominal upset, but no pain. She has not had a BM, but is passing foul-smelling flatus (which smells like melena). She denies any SOB or diziness currently, but is laying in bed. - Review of Systems General: Reports: No Symptoms Gastrointestinal: Reports: Flatus, Nausea. Denies: Abdominal Pain, Decreased Appetite, Diarrhea, Vomiting Genitourinary: Reports: No Symptoms Musculoskeletal: Reports: No Symptoms Skin: Reports: No Symptoms - Patient Data Vitals - Most Recent: Last Vital Signs Temp 37.0 C 05/08/19 05:46 Pulse 96 05/08/19 05:46 Resp 16 05/08/19 05:46 BP 109/61 05/08/19 05:46 Pulse Ox 96 05/08/19 05:46 Orthostatic Blood Pressure [ 101/67 Standing] Orthostatic Blood Pressure [ 123/69 Sitting] Orthostatic Blood Pressure [ 117/68 Supine] Weight - Most Recent: 90.718 kg I&O - Last 24 Hours: Intake & Output 05/07/19 05/08/19 05/08/19 22:59 06:59 14:59 Intake Total 2336 512 Output Total 1200 1140 Balance 1136 -628 Lab Results Last 24 Hours: Laboratory Results - last 24 hr 05/07/19 05/07/19 05/07/19 Range/Units 10:51 10:51 10:51 WBC 14.78 H (4.0-11.0) K/uL RBC 2.41 L 2.37 L (4.30-5.90) M/uL Hgb 7.5 L (12.0-16.0) g/dL Hct 22.2 L (36.0-46.0) % MCV 92.1 (80.0-98.0) fL MCH 31.1 (27.0-32.0) pg MCHC 33.8 (31.0-37.0) g/dL RDW Std Deviation 44.7 (28.0-62.0) fl RDW Coeff of Kat 13 (11.0-15.0) % Plt Count 274 (150-400) K/uL MPV 10.00 (7.40-12.00) fL Neut % (Auto) 76.2 (48.0-80.0) % Lymph % (Auto) 19.8 (16.0-40.0) % Wagoner % (Auto) 3.7 (0.0-15.0) % Eos % (Auto) 0.1 (0.0-7.0) % Baso % (Auto) 0.2 (0.0-1.5) % Neut # (Auto) 11.3 H (1.4-5.7) K/uL Lymph # (Auto) 2.9 H (0.6-2.4) K/uL Wagoner # (Auto) 0.6 (0.0-0.8) K/uL Eos # (Auto) 0.0 (0.0-0.7) K/uL Baso # (Auto) 0.0 (0.0-0.1) K/uL Nucleated RBC % 0.0 /100WBC Nucleated RBCs # 0 K/uL Smear Path Review Absolute Retic 74.40 (20-80) K/uL Percent Retic 3.1 H (0.5-1.5) % Immature Retic Fraction 13 % Sodium 134 L (136-145) mmol/L Potassium 3.1 L (3.5-5.1) mmol/L Chloride 101 (98-107) mmol/L Carbon Dioxide 20.8 L (21.0-32.0) mmol/L BUN 51 H (7.0-18.0) mg/dL Creatinine 1.2 H (0.6-1.0) mg/dL Est Cr Clr Drug Dosing 45.79 mL/min Estimated GFR (MDRD) 45.4 ml/min Glucose 187 H (74-106) mg/dL POC Glucose (60-110) mg/dL Calcium 7.7 L (8.5-10.1) mg/dL Magnesium (1.8-2.4) mg/dL Iron (50-175) ug/dL TIBC (250-450) ug/dL % Saturation (20-55) % Transferrin (200-400) ug/dL Ferritin (8-252) ng/mL Troponin I < 0.050 (0.000-0.056) ng/mL Vitamin B12 (193-986) pg/mL Folate (8.60-58.90) ng/mL Blood Type Antibody Screen Crossmatch 05/07/19 05/07/19 05/07/19 Range/Units 10:51 10:51 10:51 WBC (4.0-11.0) K/uL RBC (4.30-5.90) M/uL Hgb (12.0-16.0) g/dL Hct (36.0-46.0) % MCV (80.0-98.0) fL MCH (27.0-32.0) pg MCHC (31.0-37.0) g/dL RDW Std Deviation (28.0-62.0) fl RDW Coeff of Kat (11.0-15.0) % Plt Count (150-400) K/uL MPV (7.40-12.00) fL Neut % (Auto) (48.0-80.0) % Lymph % (Auto) (16.0-40.0) % Wagoner % (Auto) (0.0-15.0) % Eos % (Auto) (0.0-7.0) % Baso % (Auto) (0.0-1.5) % Neut # (Auto) (1.4-5.7) K/uL Lymph # (Auto) (0.6-2.4) K/uL Wagoner # (Auto) (0.0-0.8) K/uL Eos # (Auto) (0.0-0.7) K/uL Baso # (Auto) (0.0-0.1) K/uL Nucleated RBC % /100WBC Nucleated RBCs # K/uL Smear Path Review SENT TO PATHOLOGY Absolute Retic (20-80) K/uL Percent Retic (0.5-1.5) % Immature Retic Fraction % Sodium (136-145) mmol/L Potassium (3.5-5.1) mmol/L Chloride (98-107) mmol/L Carbon Dioxide (21.0-32.0) mmol/L BUN (7.0-18.0) mg/dL Creatinine (0.6-1.0) mg/dL Est Cr Clr Drug Dosing mL/min Estimated GFR (MDRD) ml/min Glucose (74-106) mg/dL POC Glucose (60-110) mg/dL Calcium (8.5-10.1) mg/dL Magnesium (1.8-2.4) mg/dL Iron 110 (50-175) ug/dL TIBC 217 L (250-450) ug/dL % Saturation 50.69 (20-55) % Transferrin 152 L (200-400) ug/dL Ferritin 80 (8-252) ng/mL Troponin I (0.000-0.056) ng/mL Vitamin B12 271 (193-986) pg/mL Folate 16.20 (8.60-58.90) ng/mL Blood Type Antibody Screen Crossmatch 05/07/19 05/07/19 05/07/19 Range/Units 10:51 11:50 17:16 WBC (4.0-11.0) K/uL RBC (4.30-5.90) M/uL Hgb (12.0-16.0) g/dL Hct (36.0-46.0) % MCV (80.0-98.0) fL MCH (27.0-32.0) pg MCHC (31.0-37.0) g/dL RDW Std Deviation (28.0-62.0) fl RDW Coeff of Kat (11.0-15.0) % Plt Count (150-400) K/uL MPV (7.40-12.00) fL Neut % (Auto) (48.0-80.0) % Lymph % (Auto) (16.0-40.0) % Wagoner % (Auto) (0.0-15.0) % Eos % (Auto) (0.0-7.0) % Baso % (Auto) (0.0-1.5) % Neut # (Auto) (1.4-5.7) K/uL Lymph # (Auto) (0.6-2.4) K/uL Wagoner # (Auto) (0.0-0.8) K/uL Eos # (Auto) (0.0-0.7) K/uL Baso # (Auto) (0.0-0.1) K/uL Nucleated RBC % /100WBC Nucleated RBCs # K/uL Smear Path Review Absolute Retic (20-80) K/uL Percent Retic (0.5-1.5) % Immature Retic Fraction % Sodium (136-145) mmol/L Potassium (3.5-5.1) mmol/L Chloride (98-107) mmol/L Carbon Dioxide (21.0-32.0) mmol/L BUN (7.0-18.0) mg/dL Creatinine (0.6-1.0) mg/dL Est Cr Clr Drug Dosing mL/min Estimated GFR (MDRD) ml/min Glucose (74-106) mg/dL POC Glucose (60-110) mg/dL Calcium (8.5-10.1) mg/dL Magnesium 1.8 (1.8-2.4) mg/dL Iron (50-175) ug/dL TIBC (250-450) ug/dL % Saturation (20-55) % Transferrin (200-400) ug/dL Ferritin (8-252) ng/mL Troponin I < 0.050 (0.000-0.056) ng/mL Vitamin B12 (193-986) pg/mL Folate (8.60-58.90) ng/mL Blood Type A POSITIVE Antibody Screen NEGATIVE Crossmatch See Detail 05/08/19 05/08/19 05/08/19 Range/Units 03:28 03:28 04:00 WBC 10.70 (4.0-11.0) K/uL RBC 2.04 L (4.30-5.90) M/uL Hgb 5.9 L (12.0-16.0) g/dL Hct 17.9 L (36.0-46.0) % MCV 87.7 (80.0-98.0) fL MCH 28.9 (27.0-32.0) pg MCHC 33.0 (31.0-37.0) g/dL RDW Std Deviation 56.4 (28.0-62.0) fl RDW Coeff of Kat 18 H (11.0-15.0) % Plt Count 174 (150-400) K/uL MPV 9.90 (7.40-12.00) fL Neut % (Auto) 67.3 (48.0-80.0) % Lymph % (Auto) 25.6 (16.0-40.0) % Wagoner % (Auto) 5.6 (0.0-15.0) % Eos % (Auto) 1.3 (0.0-7.0) % Baso % (Auto) 0.2 (0.0-1.5) % Neut # (Auto) 7.2 H (1.4-5.7) K/uL Lymph # (Auto) 2.7 H (0.6-2.4) K/uL Wagoner # (Auto) 0.6 (0.0-0.8) K/uL Eos # (Auto) 0.1 (0.0-0.7) K/uL Baso # (Auto) 0.0 (0.0-0.1) K/uL Nucleated RBC % 0.0 /100WBC Nucleated RBCs # 0 K/uL Smear Path Review Absolute Retic (20-80) K/uL Percent Retic (0.5-1.5) % Immature Retic Fraction % Sodium 138 (136-145) mmol/L Potassium 3.7 (3.5-5.1) mmol/L Chloride 108 H (98-107) mmol/L Carbon Dioxide 19.3 L (21.0-32.0) mmol/L BUN 48 H (7.0-18.0) mg/dL Creatinine 0.9 (0.6-1.0) mg/dL Est Cr Clr Drug Dosing 61.06 mL/min Estimated GFR (MDRD) > 60.0 ml/min Glucose 121 H (74-106) mg/dL POC Glucose 149 H (60-110) mg/dL Calcium 7.0 L (8.5-10.1) mg/dL Magnesium 1.6 L (1.8-2.4) mg/dL Iron (50-175) ug/dL TIBC (250-450) ug/dL % Saturation (20-55) % Transferrin (200-400) ug/dL Ferritin (8-252) ng/mL Troponin I (0.000-0.056) ng/mL Vitamin B12 (193-986) pg/mL Folate (8.60-58.90) ng/mL Blood Type Antibody Screen Crossmatch Sánchez Results Last 24 Hours: Microbiology 05/07/19 04:09 Aerobic Blood Culture - Preliminary Blood - Venous - Lab Draw NO GROWTH AFTER 1 DAY Anaerobic Blood Culture - Final 05/07/19 03:55 Aerobic Blood Culture - Preliminary Blood - Venous NO GROWTH AFTER 1 DAY Anaerobic Blood Culture - Final 05/07/19 10:48 Stool Occult Blood (SÁNCHEZ) - Final Stool / Feces POSITIVE OCCULT BLOOD REFERENCE RANGE: NEGATIVE Med Orders - Current: Current Medications Acetaminophen (Tylenol) 650 mg PO Q4H PRN PRN Reason: Pain (Mild 1-3)/fever Last Admin: 05/07/19 09:11 Dose: 650 mg Pantoprazole Sodium 40 mg/ (Sodium Chloride) 10 mls @ 300 mls/hr IV Q12H SHEMAR Last Admin: 05/07/19 23:14 Dose: 300 mls/hr Ondansetron HCl (Zofran) 4 mg IVPUSH Q4H PRN PRN Reason: Nausea Last Admin: 05/08/19 04:03 Dose: 4 mg Sodium Chloride (Saline Flush) 10 ml FLUSH ASDIRECTED PRN PRN Reason: Keep Vein Open Last Admin: 05/07/19 23:25 Dose: 10 ml Sodium Chloride (Saline Flush) 2.5 ml FLUSH ASDIRECTED PRN PRN Reason: Keep Vein Open Tramadol HCl (Ultram) 50 mg PO TID PRN PRN Reason: pain Last Admin: 05/07/19 23:36 Dose: 50 mg Discontinued Medications Sodium Chloride (Normal Saline) 1,000 mls @ 999 mls/hr IV .BOLUS ONE Stop: 05/07/19 03:30 Last Admin: 05/07/19 02:42 Dose: 999 mls/hr Sodium Chloride (Normal Saline) 1,000 mls @ 999 mls/hr IV .BOLUS ONE Stop: 05/07/19 05:30 Last Admin: 05/07/19 04:34 Dose: 999 mls/hr Ceftriaxone Sodium 1 gm/ (Sodium Chloride) 50 mls @ 100 mls/hr IV ONETIME ONE Stop: 05/07/19 06:25 Last Admin: 05/07/19 06:17 Dose: 100 mls/hr Sodium Chloride (Normal Saline) 1,000 mls @ 125 mls/hr IV ASDIRECTED SHEMAR Last Infusion: 05/07/19 08:20 Dose: 125 mls/hr Pantoprazole Sodium 40 mg/ (Sodium Chloride) 10 mls @ 300 mls/hr IV Q12H SHEMAR Last Admin: 05/07/19 12:39 Dose: Not Given Potassium Chloride/Sodium Chloride (Normal Saline With 40 Meq Kcl) 1,000 mls @ 125 mls/hr IV ONETIME ONE Stop: 05/07/19 19:50 Last Admin: 05/07/19 12:23 Dose: 125 mls/hr Pantoprazole Sodium 80 mg/ (Sodium Chloride) 10 mls @ 300 mls/hr IV NOW ONE Stop: 05/07/19 11:53 Last Admin: 05/07/19 12:23 Dose: 300 mls/hr - Exam Quality Assessment: Supplemental Oxygen General: Alert, Oriented HEENT: Pupils Equal, Pupils Reactive Lungs: Normal Respiratory Effort Cardiovascular: Regular Rate GI/Abdominal Exam: Soft, Non-Tender, No Distention, No Mass Sepsis Event Note - Evaluation Sepsis Screening Result: No Definite Risk - Focused Exam Vital Signs: Vital Signs Temp Temp Pulse Resp BP Pulse Ox 05/08/19 05:46 37.0 C 96 16 109/61 96 05/08/19 05:31 36.7 C 96 16 120/65 05/08/19 05:26 36.9 C 94 16 116/66 93 L 05/08/19 04:00 36.6 C 92 16 133/82 98 05/07/19 21:51 36.6 C 90 18 134/68 97 05/07/19 20:51 36.3 C 89 16 119/62 96 Date Exam was Performed: 05/08/19 Time Exam was Performed: 07:41 Consult PN Assessment/Plan Procedures: Procedures COMPLETE CBC W/AUTO DIFF WBC (03/15/17) COMPREHEN METABOLIC PANEL (06/18/17) CT ABD & PELV 1/> REGNS (03/19/17) CT NECK SPINE W/O DYE (06/21/17) CT UPPER EXTREMITY W/O DYE (06/18/17) EMERGENCY DEPT VISIT (09/18/16) EMERGENCY DEPT VISIT (06/05/16) PROTEIN E-PHORESIS SERUM (06/18/17) ROUTINE VENIPUNCTURE (06/18/17) THER/PROPH/DIAG INJ SC/IM (09/18/16) X-RAY EXAM HIP UNI 2-3 VIEWS (03/15/17) X-RAY EXAM NECK SPINE 2-3 VW (06/18/17) X-RAY EXAM OF ANKLE (03/15/17) X-RAY EXAM OF FEMUR 2/> (03/19/17) X-RAY EXAM OF SHOULDER (06/18/17) X-RAY EXAM UNILAT RIBS/CHEST (12/27/17) (1) Dehydration SNOMED Code(s): 12665440 Code(s): E86.0 - DEHYDRATION Current Visit: Yes (2) Symptomatic anemia SNOMED Code(s): 931798110 Code(s): D64.9 - ANEMIA, UNSPECIFIED Current Visit: Yes (3) Upper GI bleed SNOMED Code(s): 00343767 Code(s): K92.2 - GASTROINTESTINAL HEMORRHAGE, UNSPECIFIED Current Visit: Yes Problem List Initiated/Reviewed/Updated: Yes My Orders Last 24 Hours: My Active Orders 05/08/19 Breakfast NPO Now [Nothing per Oral Now Diet] [DIET] Plan: Would recommend transfer of the patient as she appears to be having ongoing bleeding despite resuscitation with blood products, since our intraoperative resources are limited when it comes to managing active GI bleeding. Patient is currently stable, but continue blood products and NPO status.
--- NOTE | 2019-05-08 08:23 | PCM.DCSUM1 ---
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 She reports she otherwise has felt fine, but has been very short of breath especially with exertion, mild cough, but non productive. No fevers or chills at home. No abdominal pain or dysuria. She reports stools have been normal, except for this morning, when she noticed the stool was blackish in color. She denies alcohol use. She does report taking Ibuprofen almost daily for arthritic pain for her back along with her Tramadol. She denies history of bleeding in the past, does not take anticoagulation. No vaginal bleeding.She denies increase in heartburn or GERD. No nausea or vomiting. She denies history Dm CAD or CVA. In the ED leukocytosis noted at 16,320, hgb 9.6 Na 131, Cl 976, BUN 67, C r 1.2 troponin negative EKG SR with no ST changes. CXR negative. She was admitted for dehydration and dyspnea. Upon further discussion and evaluation, patient likely has upper GI bleeding. Will change to inpatient and place on Protonix. Repeat labwork this morning, revealed hgb 7.5. Continues to be symptomatic. Will obtain Iron studies and peripheral smear. Transfusion today. Diagnosis: Stroke: No - Discharge Data Discharge Date: 05/08/19 Discharge Disposition: DC/Tfer to Acute Hospital 02 Condition: Stable - Referral to Home Health Primary Care Physician: David Spears MD - Discharge Diagnosis/Problem(s) (1) Upper GI bleed SNOMED Code(s): 95273806 ICD Code: K92.2 - GASTROINTESTINAL HEMORRHAGE, UNSPECIFIED Status: Acute Current Visit: Yes (2) Symptomatic anemia SNOMED Code(s): 088889101 ICD Code: D64.9 - ANEMIA, UNSPECIFIED Status: Acute Current Visit: Yes (3) Dehydration SNOMED Code(s): 18056208 ICD Code: E86.0 - DEHYDRATION Status: Acute Current Visit: Yes (4) Deaf SNOMED Code(s): 36488920 ICD Code: H91.90 - UNSPECIFIED HEARING LOSS, UNSPECIFIED EAR Status: Chronic Current Visit: Yes Qualifiers: Laterality: bilateral Qualified Code(s): H91.93 - Unspecified hearing loss , bilateral (5) Hypokalemia SNOMED Code(s): 54556350 ICD Code: E87.6 - HYPOKALEMIA Status: Acute Current Visit: Yes - Patient Summary/Data Consults: Consultations 05/07/19 12:11 Consult to Physician [CONS] Routine - Patient Instructions Diet: NPO - Discharge Plan *PRESCRIPTION DRUG MONITORING PROGRAM REVIEWED*: Not Applicable *COPY OF PRESCRIPTION DRUG MONITORING REPORT IN PATIENT JOLLY: Not Applicable Home Medications: Home Meds Lisinopril/Hydrochlorothiazide [Lisinopril-HCTZ 10-12.5 MG] 10 - 12.5 mg PO DAILY 05/07/19 [History] traMADol [Ultram] 50 mg PO TID PRN 05/07/19 [History] Pantoprazole [ProTONIX IV] 40 mg IV Q12H vial 05/08/19 [Rx] Oxygen Therapy Mode: Room Air Referrals: PCP,None [Ordering Only Provider] - - Discharge Summary/Plan Comment DC Time >30 min.: No Discharge Summary/Plan Comment: Admitting Diagnoses: Dizziness Dyspnea Discharge Diagnoses: Acute upper GI bleed Other PMH: Deaf HTN Chronic back pain Shania was admitted secondary to sudden dizziness and dyspnea. She initially appeared to be dehydrated in ED. Upon further evaluation she had black bowel movements and appeared to have upper GI bleed. Repeat HH showed hgb 7.5. Iron studies and peripheral smear obtained. She was started on Protonix 80 mg bolus then 40 mg IV BID. She was transfused 2 units PRBCs, this morning repeat labwork reveals hgb 5.9 and she is now having some nausea with coffee groun emesis. No overt bloody stools, but is passing foul flatus, melanotic in nature. stool was heme positive. This morning I spoke with Dr Hebert, general surgery, she is canelling EGD here and recommends transfer since hgb is not stable and patient may be continuing to bleed. I spoke with patient regarding this and she is agreeable for transfer. Overnight IV access has been an issue, currently we have limited access. Anesthesia consulted to place a better IV for transport and accepting facility. I spoke with Dr Foley, [facility] who has kindly accepted patient for transport. Will continue PRBC transfusion upon transfer. She will go by ground EMS as she is currently hemodynamically stable. I did call daughter, Coretta [phone]. She is coming to [place] currently and was informed about current treatment plan and the need for transfer. [place] is deaf. She does read lips well, but we have also been using MARRTI with [place] Sign Language. - Patient Data Vitals - Most Recent: Last Vital Signs Temp 98.1 F 05/08/19 07:00 Pulse 98 05/08/19 07:00 Resp 16 05/08/19 07:00 BP 124/85 05/08/19 07:00 Pulse Ox 98 05/08/19 07:00 Orthostatic Blood Pressure [ 101/67 Standing] Orthostatic Blood Pressure [ 123/69 Sitting] Orthostatic Blood Pressure [ 117/68 Supine] Weight - Most Recent: 90.718 kg I&O - Last 24 hours: Intake & Output 05/07/19 05/08/19 05/08/19 22:59 06:59 14:59 Intake Total 2336 512 Output Total 1200 1140 Balance 1136 -628 Lab Results - Last 24 hrs: Laboratory Results - last 24 hr 05/07/19 05/07/19 05/07/19 Range/Units 10:51 10:51 10:51 WBC 14.78 H (4.0-11.0) K/uL RBC 2.41 L 2.37 L (4.30-5.90) M/uL Hgb 7.5 L (12.0-16.0) g/dL Hct 22.2 L (36.0-46.0) % MCV 92.1 (80.0-98.0) fL MCH 31.1 (27.0-32.0) pg MCHC 33.8 (31.0-37.0) g/dL RDW Std Deviation 44.7 (28.0-62.0) fl RDW Coeff of Kat 13 (11.0-15.0) % Plt Count 274 (150-400) K/uL MPV 10.00 (7.40-12.00) fL Neut % (Auto) 76.2 (48.0-80.0) % Lymph % (Auto) 19.8 (16.0-40.0) % Gregory % (Auto) 3.7 (0.0-15.0) % Eos % (Auto) 0.1 (0.0-7.0) % Baso % (Auto) 0.2 (0.0-1.5) % Neut # (Auto) 11.3 H (1.4-5.7) K/uL Lymph # (Auto) 2.9 H (0.6-2.4) K/uL Gregory # (Auto) 0.6 (0.0-0.8) K/uL Eos # (Auto) 0.0 (0.0-0.7) K/uL Baso # (Auto) 0.0 (0.0-0.1) K/uL Nucleated RBC % 0.0 /100WBC Nucleated RBCs # 0 K/uL Smear Path Review Absolute Retic 74.40 (20-80) K/uL Percent Retic 3.1 H (0.5-1.5) % Immature Retic Fraction 13 % Sodium 134 L (136-145) mmol/L Potassium 3.1 L (3.5-5.1) mmol/L Chloride 101 (98-107) mmol/L Carbon Dioxide 20.8 L (21.0-32.0) mmol/L BUN 51 H (7.0-18.0) mg/dL Creatinine 1.2 H (0.6-1.0) mg/dL Est Cr Clr Drug Dosing 45.79 mL/min Estimated GFR (MDRD) 45.4 ml/min Glucose 187 H (74-106) mg/dL POC Glucose (60-110) mg/dL Calcium 7.7 L (8.5-10.1) mg/dL Magnesium (1.8-2.4) mg/dL Iron (50-175) ug/dL TIBC (250-450) ug/dL % Saturation (20-55) % Transferrin (200-400) ug/dL Ferritin (8-252) ng/mL Troponin I < 0.050 (0.000-0.056) ng/mL Vitamin B12 (193-986) pg/mL Folate (8.60-58.90) ng/mL Blood Type Antibody Screen Crossmatch 05/07/19 05/07/19 05/07/19 Range/Units 10:51 10:51 10:51 WBC (4.0-11.0) K/uL RBC (4.30-5.90) M/uL Hgb (12.0-16.0) g/dL Hct (36.0-46.0) % MCV (80.0-98.0) fL MCH (27.0-32.0) pg MCHC (31.0-37.0) g/dL RDW Std Deviation (28.0-62.0) fl RDW Coeff of Kat (11.0-15.0) % Plt Count (150-400) K/uL MPV (7.40-12.00) fL Neut % (Auto) (48.0-80.0) % Lymph % (Auto) (16.0-40.0) % Gregory % (Auto) (0.0-15.0) % Eos % (Auto) (0.0-7.0) % Baso % (Auto) (0.0-1.5) % Neut # (Auto) (1.4-5.7) K/uL Lymph # (Auto) (0.6-2.4) K/uL Gregory # (Auto) (0.0-0.8) K/uL Eos # (Auto) (0.0-0.7) K/uL Baso # (Auto) (0.0-0.1) K/uL Nucleated RBC % /100WBC Nucleated RBCs # K/uL Smear Path Review SENT TO PATHOLOGY Absolute Retic (20-80) K/uL Percent Retic (0.5-1.5) % Immature Retic Fraction % Sodium (136-145) mmol/L Potassium (3.5-5.1) mmol/L Chloride (98-107) mmol/L Carbon Dioxide (21.0-32.0) mmol/L BUN (7.0-18.0) mg/dL Creatinine (0.6-1.0) mg/dL Est Cr Clr Drug Dosing mL/min Estimated GFR (MDRD) ml/min Glucose (74-106) mg/dL POC Glucose (60-110) mg/dL Calcium (8.5-10.1) mg/dL Magnesium (1.8-2.4) mg/dL Iron 110 (50-175) ug/dL TIBC 217 L (250-450) ug/dL % Saturation 50.69 (20-55) % Transferrin 152 L (200-400) ug/dL Ferritin 80 (8-252) ng/mL Troponin I (0.000-0.056) ng/mL Vitamin B12 271 (193-986) pg/mL Folate 16.20 (8.60-58.90) ng/mL Blood Type Antibody Screen Crossmatch 05/07/19 05/07/19 05/07/19 Range/Units 10:51 11:50 17:16 WBC (4.0-11.0) K/uL RBC (4.30-5.90) M/uL Hgb (12.0-16.0) g/dL Hct (36.0-46.0) % MCV (80.0-98.0) fL MCH (27.0-32.0) pg MCHC (31.0-37.0) g/dL RDW Std Deviation (28.0-62.0) fl RDW Coeff of Kat (11.0-15.0) % Plt Count (150-400) K/uL MPV (7.40-12.00) fL Neut % (Auto) (48.0-80.0) % Lymph % (Auto) (16.0-40.0) % Gregory % (Auto) (0.0-15.0) % Eos % (Auto) (0.0-7.0) % Baso % (Auto) (0.0-1.5) % Neut # (Auto) (1.4-5.7) K/uL Lymph # (Auto) (0.6-2.4) K/uL Gregory # (Auto) (0.0-0.8) K/uL Eos # (Auto) (0.0-0.7) K/uL Baso # (Auto) (0.0-0.1) K/uL Nucleated RBC % /100WBC Nucleated RBCs # K/uL Smear Path Review Absolute Retic (20-80) K/uL Percent Retic (0.5-1.5) % Immature Retic Fraction % Sodium (136-145) mmol/L Potassium (3.5-5.1) mmol/L Chloride (98-107) mmol/L Carbon Dioxide (21.0-32.0) mmol/L BUN (7.0-18.0) mg/dL Creatinine (0.6-1.0) mg/dL Est Cr Clr Drug Dosing mL/min Estimated GFR (MDRD) ml/min Glucose (74-106) mg/dL POC Glucose (60-110) mg/dL Calcium (8.5-10.1) mg/dL Magnesium 1.8 (1.8-2.4) mg/dL Iron (50-175) ug/dL TIBC (250-450) ug/dL % Saturation (20-55) % Transferrin (200-400) ug/dL Ferritin (8-252) ng/mL Troponin I < 0.050 (0.000-0.056) ng/mL Vitamin B12 (193-986) pg/mL Folate (8.60-58.90) ng/mL Blood Type A POSITIVE Antibody Screen NEGATIVE Crossmatch See Detail 05/08/19 05/08/19 05/08/19 Range/Units 03:28 03:28 04:00 WBC 10.70 (4.0-11.0) K/uL RBC 2.04 L (4.30-5.90) M/uL Hgb 5.9 L (12.0-16.0) g/dL Hct 17.9 L (36.0-46.0) % MCV 87.7 (80.0-98.0) fL MCH 28.9 (27.0-32.0) pg MCHC 33.0 (31.0-37.0) g/dL RDW Std Deviation 56.4 (28.0-62.0) fl RDW Coeff of Kat 18 H (11.0-15.0) % Plt Count 174 (150-400) K/uL MPV 9.90 (7.40-12.00) fL Neut % (Auto) 67.3 (48.0-80.0) % Lymph % (Auto) 25.6 (16.0-40.0) % Gregory % (Auto) 5.6 (0.0-15.0) % Eos % (Auto) 1.3 (0.0-7.0) % Baso % (Auto) 0.2 (0.0-1.5) % Neut # (Auto) 7.2 H (1.4-5.7) K/uL Lymph # (Auto) 2.7 H (0.6-2.4) K/uL Gregory # (Auto) 0.6 (0.0-0.8) K/uL Eos # (Auto) 0.1 (0.0-0.7) K/uL Baso # (Auto) 0.0 (0.0-0.1) K/uL Nucleated RBC % 0.0 /100WBC Nucleated RBCs # 0 K/uL Smear Path Review Absolute Retic (20-80) K/uL Percent Retic (0.5-1.5) % Immature Retic Fraction % Sodium 138 (136-145) mmol/L Potassium 3.7 (3.5-5.1) mmol/L Chloride 108 H (98-107) mmol/L Carbon Dioxide 19.3 L (21.0-32.0) mmol/L BUN 48 H (7.0-18.0) mg/dL Creatinine 0.9 (0.6-1.0) mg/dL Est Cr Clr Drug Dosing 61.06 mL/min Estimated GFR (MDRD) > 60.0 ml/min Glucose 121 H (74-106) mg/dL POC Glucose 149 H (60-110) mg/dL Calcium 7.0 L (8.5-10.1) mg/dL Magnesium 1.6 L (1.8-2.4) mg/dL Iron (50-175) ug/dL TIBC (250-450) ug/dL % Saturation (20-55) % Transferrin (200-400) ug/dL Ferritin (8-252) ng/mL Troponin I (0.000-0.056) ng/mL Vitamin B12 (193-986) pg/mL Folate (8.60-58.90) ng/mL Blood Type Antibody Screen Crossmatch STELLA Results - Last 24 hrs: Microbiology 05/07/19 04:09 Aerobic Blood Culture - Preliminary Blood - Venous - Lab Draw NO GROWTH AFTER 1 DAY Anaerobic Blood Culture - Final 05/07/19 03:55 Aerobic Blood Culture - Preliminary Blood - Venous NO GROWTH AFTER 1 DAY Anaerobic Blood Culture - Final 05/07/19 10:48 Stool Occult Blood (STELLA) - Final Stool / Feces POSITIVE OCCULT BLOOD REFERENCE RANGE: NEGATIVE Med Orders - Current: Current Medications Acetaminophen (Tylenol) 650 mg PO Q4H PRN PRN Reason: Pain (Mild 1-3)/fever Last Admin: 05/07/19 09:11 Dose: 650 mg Pantoprazole Sodium 40 mg/ (Sodium Chloride) 10 mls @ 300 mls/hr IV Q12H [facility] Last Admin: 05/07/19 23:14 Dose: 300 mls/hr Ondansetron HCl (Zofran) 4 mg IVPUSH Q4H PRN PRN Reason: Nausea Last Admin: 05/08/19 04:03 Dose: 4 mg Sodium Chloride (Saline Flush) 10 ml FLUSH ASDIRECTED PRN PRN Reason: Keep Vein Open Last Admin: 05/07/19 23:25 Dose: 10 ml Sodium Chloride (Saline Flush) 2.5 ml FLUSH ASDIRECTED PRN PRN Reason: Keep Vein Open Tramadol HCl (Ultram) 50 mg PO TID PRN PRN Reason: pain Last Admin: 05/07/19 23:36 Dose: 50 mg Discontinued Medications Sodium Chloride (Normal Saline) 1,000 mls @ 999 mls/hr IV .BOLUS ONE Stop: 05/07/19 03:30 Last Admin: 05/07/19 02:42 Dose: 999 mls/hr Sodium Chloride (Normal Saline) 1,000 mls @ 999 mls/hr IV .BOLUS ONE Stop: 05/07/19 05:30 Last Admin: 05/07/19 04:34 Dose: 999 mls/hr Ceftriaxone Sodium 1 gm/ (Sodium Chloride) 50 mls @ 100 mls/hr IV ONETIME ONE Stop: 05/07/19 06:25 Last Admin: 05/07/19 06:17 Dose: 100 mls/hr Sodium Chloride (Normal Saline) 1,000 mls @ 125 mls/hr IV ASDIRECTED [facility] Last Infusion: 05/07/19 08:20 Dose: 125 mls/hr Pantoprazole Sodium 40 mg/ (Sodium Chloride) 10 mls @ 300 mls/hr IV Q12H [facility] Last Admin: 05/07/19 12:39 Dose: Not Given Potassium Chloride/Sodium Chloride (Normal Saline With 40 Meq Kcl) 1,000 mls @ 125 mls/hr IV ONETIME ONE Stop: 05/07/19 19:50 Last Admin: 05/07/19 12:23 Dose: 125 mls/hr Pantoprazole Sodium 80 mg/ (Sodium Chloride) 10 mls @ 300 mls/hr IV NOW ONE Stop: 05/07/19 11:53 Last Admin: 05/07/19 12:23 Dose: 300 mls/hr - Exam General: Reports: Alert, Oriented, Cooperative, No Acute Distress, Other ( melanotic smell in room noted.) Lungs: Reports: Clear to Auscultation, Normal Respiratory Effort Cardiovascular: Reports: Regular Rate, Regular Rhythm GI/Abdominal Exam: Normal Bowel Sounds, Soft, Non-Tender Skin: Reports: Warm, Dry, Other (pale) Neurological: Reports: No New Focal Deficit Psy/Mental Status: Reports: Alert, Normal Affect, Normal Mood
--- NOTE | 2019-05-08 08:27 | PCM.SN ---
- Free Text/Narrative Note: Called by nursing for PIV start. Ultrasound used to identified Rt FA vein. 20g IV catheter placed. Secured with tape and tegaderm. Draws blood and flushes with ease. Pt tolerated placement well.
[2019-05-08] MEDS: Acetaminophen 325 MG Tab PO PRN (08:46)
[2019-05-08 09:26] VITALS: BP 120/69; PULSE 98
--- NOTE | 2019-06-19 22:12 | EDM.PDOC ---
ED HPI GENERAL MEDICAL PROBLEM - General Chief Complaint: Respiratory Problem Stated Complaint: SHORTNESS OF BREATH Time Seen by Provider: 05/07/19 02:31 Source of Information: Reports: Patient History Limitations: Reports: No Limitations - History of Present Illness INITIAL COMMENTS - FREE TEXT/NARRATIVE: 64-year-old female presents with roughly 1 week history of shortness of breath worsening over the past 48 hours. Patient feels like she can breathe okay when she is at rest however when she begins to ambulate she feels very short of breath. She does report one tarry stool this morning. No other significant complaints. Patient denies any chest pain arm pain or jaw pain. No history of DVT or PE. Patient denies any significant abdominal pain or dysuria. No's new swollen joints or rashes. Headache Pain Score (Numeric/FACES): 8 - Related Data Allergies Allergy/AdvReac Type Severity Reaction Status Date / Time meperidine HCl [From Demerol] Allergy Rash Verified 05/07/19 02:17 Home Meds: Home Meds Lisinopril/Hydrochlorothiazide [Lisinopril-HCTZ 10-12.5 MG] 10 - 12.5 mg PO DAILY 05/07/19 [History] traMADol [Ultram] 50 mg PO TID PRN 05/07/19 [History] Pantoprazole [ProTONIX IV] 40 mg IV Q12H vial 05/08/19 [Rx] Past Medical History HEENT History: Reports: Other (See Below) Other HEENT History: deaf Cardiovascular History: Reports: Hypertension. Denies: Afib, Blood Clots/VTE/ DVT, CAD, IA, Pacemaker Respiratory History: Reports: None. Denies: Asthma, COPD Gastrointestinal History: Reports: Other (See Below) Other Gastrointestinal History: Hernia left Genitourinary History: Reports: None. 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 Denies: CVA, TIA Psychiatric History: Reports: None Endocrine/Metabolic History: Reports: None, Obesity/BMI 30+. Denies: Diabetes, Type II, Hypothyroidism Hematologic History: Reports: None Immunologic History: Reports: None Oncologic (Cancer) History: Reports: None Dermatologic History: Reports: None - Infectious Disease History Infectious Disease History: Reports: Chicken Pox, Meningitis (cause of deafness at 3 yo), Shingles - Past Surgical History Head Surgeries/Procedures: Reports: None HEENT Surgical History: Reports: None Cardiovascular Surgical History: Reports: None GI Surgical History: Reports: Hernia, Inguinal Female Surgical History: Reports: Section, Other (See Below) ( fibroid removed) Neurological Surgical History: Reports: None Social & Family History - Family History Family Medical History: Noncontributory - Tobacco Use Smoking Status *Q: Never Smoker Used Tobacco, but Quit: Yes Month/Year Tobacco Last Used: 1975 Second Hand Smoke Exposure: No - Caffeine Use Caffeine Use: Reports: Coffee - Recreational Drug Use Recreational Drug Use: No - Living Situation & Occupation Occupation: Disabled ED ROS GENERAL - Review of Systems Review Of Systems: Comprehensive ROS is negative, except as noted in HPI. ED EXAM, GENERAL - Physical Exam Exam: See Below Free Text/Narrative:: General: No acute distress. Comfortable. Heent: Examination revealed no pallor, no icterus, no lymphadenopathy. The patient has normal posterior pharynx, moist mucous membranes. Neck: Supple. No JVD. No rigidity. Heart: Normal rate. Reg rhythm. No murmurs appreciated. Lungs: Bilaterally clear to auscultation. No focal findings. Abdomen: Nontender, non-distended, soft, no CVA tenderness. Neuro: Pt is moving all four extremities. EOMI. PERRL. Normal speech. Skin: Exposed areas appeared normally perfused, warm, normal color with no meaningful rashes or lesions. Extremities: Peripheral examination revealed no pedal edema. Peripheral pulses were 2+. Rectal: Dark melnotic stool around anus GI/Abdominal: Normal Bowel Sounds, Soft, Non-Tender Extremities: Normal Inspection, Normal Range of Motion, Non-Tender, No Pedal Edema Course - Vital Signs Text/Narrative:: GI bleed likely the source of dyspnea. Admission. She is stable here. Last Recorded V/S: Last Vital Signs Temp 98.2 F 05/08/19 09:25 Pulse 98 05/08/19 09:25 Resp 17 05/08/19 09:25 BP 120/69 05/08/19 09:25 Pulse Ox 97 05/08/19 09:25 Orthostatic Blood Pressure [ 101/67 Standing] Orthostatic Blood Pressure [ 123/69 Sitting] Orthostatic Blood Pressure [ 117/68 Supine] - Orders/Labs/Meds Labs: Laboratory Tests 05/07/19 05/07/19 05/07/19 Range/Units 02:15 02:15 02:15 WBC 16.32 H (4.0-11.0) K/uL RBC 3.08 L (4.30-5.90) M/uL Hgb 9.6 L (12.0-16.0) g/dL Hct 28.0 L (36.0-46.0) % MCV 90.9 (80.0-98.0) fL MCH 31.2 (27.0-32.0) pg MCHC 34.3 (31.0-37.0) g/dL RDW Std Deviation 43.7 (28.0-62.0) fl RDW Coeff of Kat 13 (11.0-15.0) % Plt Count 313 (150-400) K/uL MPV 10.00 (7.40-12.00) fL Neut % (Auto) 81.0 H (48.0-80.0) % Lymph % (Auto) 15.7 L (16.0-40.0) % [place] % (Auto) 3.1 (0.0-15.0) % Eos % (Auto) 0.1 (0.0-7.0) % Baso % (Auto) 0.1 (0.0-1.5) % Neut # (Auto) 13.2 H (1.4-5.7) K/uL Lymph # (Auto) 2.6 H (0.6-2.4) K/uL [place] # (Auto) 0.5 (0.0-0.8) K/uL Eos # (Auto) 0.0 (0.0-0.7) K/uL Baso # (Auto) 0.0 (0.0-0.1) K/uL Nucleated RBC % 0.0 /100WBC Nucleated RBCs # 0 K/uL Smear Path Review Absolute Retic (20-80) K/uL Percent Retic (0.5-1.5) % Immature Retic Fraction % Lactate 1.7 (0.20-2.00) mmol/L Sodium 131 L (136-145) mmol/L Potassium 3.8 (3.5-5.1) mmol/L Chloride 96 L (98-107) mmol/L Carbon Dioxide 19.3 L (21.0-32.0) mmol/L BUN 67 H (7.0-18.0) mg/dL Creatinine 1.2 H (0.6-1.0) mg/dL Est Cr Clr Drug Dosing TNP Estimated GFR (MDRD) 45.4 ml/min Glucose 143 H (74-106) mg/dL Calcium 8.5 (8.5-10.1) mg/dL Magnesium (1.8-2.4) mg/dL Iron (50-175) ug/dL TIBC (250-450) ug/dL % Saturation (20-55) % Transferrin (200-400) ug/dL Ferritin (8-252) ng/mL Total Bilirubin 0.3 (0.2-1.0) mg/dL AST 11 L (15-37) IU/L ALT 18 (14-63) IU/L Alkaline Phosphatase 60 (46-116) U/L Troponin I (0.000-0.056) ng/mL Total Protein 6.7 (6.4-8.2) g/dL Albumin 3.5 (3.4-5.0) g/dL Globulin 3.2 (2.6-4.0) g/dL Albumin/Globulin Ratio 1.1 (0.9-1.6) Vitamin B12 (193-986) pg/mL Folate (8.60-58.90) ng/mL TSH 3rd Generation 1.11 (0.36-3.74) uIU/mL Urine Color Urine Appearance Urine pH (5.0-8.0) Ur Specific [place] (1.001-1.035) Urine Protein (NEGATIVE) mg/dL Urine Glucose (UA) (NEGATIVE) mg/dL Urine Ketones (NEGATIVE) mg/dL Urine Occult Blood (NEGATIVE) Urine Nitrite (NEGATIVE) Urine Bilirubin (NEGATIVE) Urine Urobilinogen (<2.0) EU/dL Ur Leukocyte Esterase (NEGATIVE) Blood Type Antibody Screen Crossmatch 05/07/19 05/07/19 05/07/19 Range/Units 03:30 04:09 10:51 WBC (4.0-11.0) K/uL RBC (4.30-5.90) M/uL Hgb (12.0-16.0) g/dL Hct (36.0-46.0) % MCV (80.0-98.0) fL MCH (27.0-32.0) pg MCHC (31.0-37.0) g/dL RDW Std Deviation (28.0-62.0) fl RDW Coeff of Kat (11.0-15.0) % Plt Count (150-400) K/uL MPV (7.40-12.00) fL Neut % (Auto) (48.0-80.0) % Lymph % (Auto) (16.0-40.0) % [place] % (Auto) (0.0-15.0) % Eos % (Auto) (0.0-7.0) % Baso % (Auto) (0.0-1.5) % Neut # (Auto) (1.4-5.7) K/uL Lymph # (Auto) (0.6-2.4) K/uL [place] # (Auto) (0.0-0.8) K/uL Eos # (Auto) (0.0-0.7) K/uL Baso # (Auto) (0.0-0.1) K/uL Nucleated RBC % /100WBC Nucleated RBCs # K/uL Smear Path Review Absolute Retic (20-80) K/uL Percent Retic (0.5-1.5) % Immature Retic Fraction % Lactate (0.20-2.00) mmol/L Sodium 134 L (136-145) mmol/L Potassium 3.1 L (3.5-5.1) mmol/L Chloride 101 (98-107) mmol/L Carbon Dioxide 20.8 L (21.0-32.0) mmol/L BUN 51 H (7.0-18.0) mg/dL Creatinine 1.2 H (0.6-1.0) mg/dL Est Cr Clr Drug Dosing 45.79 Estimated GFR (MDRD) 45.4 ml/min Glucose 187 H (74-106) mg/dL Calcium 7.7 L (8.5-10.1) mg/dL Magnesium (1.8-2.4) mg/dL Iron (50-175) ug/dL TIBC (250-450) ug/dL % Saturation (20-55) % Transferrin (200-400) ug/dL Ferritin (8-252) ng/mL Total Bilirubin (0.2-1.0) mg/dL AST (15-37) IU/L ALT (14-63) IU/L Alkaline Phosphatase (46-116) U/L Troponin I < 0.050 < 0.050 (0.000-0.056) ng/mL Total Protein (6.4-8.2) g/dL Albumin (3.4-5.0) g/dL Globulin (2.6-4.0) g/dL Albumin/Globulin Ratio (0.9-1.6) Vitamin B12 (193-986) pg/mL Folate (8.60-58.90) ng/mL TSH 3rd Generation (0.36-3.74) uIU/mL Urine Color YELLOW Urine Appearance CLEAR Urine pH 6.0 (5.0-8.0) Ur Specific [place] 1.015 (1.001-1.035) Urine Protein NEGATIVE (NEGATIVE) mg/dL Urine Glucose (UA) NEGATIVE (NEGATIVE) mg/dL Urine Ketones TRACE H (NEGATIVE) mg/dL Urine Occult Blood NEGATIVE (NEGATIVE) Urine Nitrite NEGATIVE (NEGATIVE) Urine Bilirubin NEGATIVE (NEGATIVE) Urine Urobilinogen 0.2 (<2.0) EU/dL Ur Leukocyte Esterase NEGATIVE (NEGATIVE) Blood Type Antibody Screen Crossmatch 05/07/19 05/07/19 05/07/19 Range/Units 10:51 10:51 10:51 WBC 14.78 H (4.0-11.0) K/uL RBC 2.41 L 2.37 L (4.30-5.90) M/uL Hgb 7.5 L (12.0-16.0) g/dL Hct 22.2 L (36.0-46.0) % MCV 92.1 (80.0-98.0) fL MCH 31.1 (27.0-32.0) pg MCHC 33.8 (31.0-37.0) g/dL RDW Std Deviation 44.7 (28.0-62.0) fl RDW Coeff of Kat 13 (11.0-15.0) % Plt Count 274 (150-400) K/uL MPV 10.00 (7.40-12.00) fL Neut % (Auto) 76.2 (48.0-80.0) % Lymph % (Auto) 19.8 (16.0-40.0) % [place] % (Auto) 3.7 (0.0-15.0) % Eos % (Auto) 0.1 (0.0-7.0) % Baso % (Auto) 0.2 (0.0-1.5) % Neut # (Auto) 11.3 H (1.4-5.7) K/uL Lymph # (Auto) 2.9 H (0.6-2.4) K/uL [place] # (Auto) 0.6 (0.0-0.8) K/uL Eos # (Auto) 0.0 (0.0-0.7) K/uL Baso # (Auto) 0.0 (0.0-0.1) K/uL Nucleated RBC % 0.0 /100WBC Nucleated RBCs # 0 K/uL Smear Path Review Absolute Retic 74.40 (20-80) K/uL Percent Retic 3.1 H (0.5-1.5) % Immature Retic Fraction 13 % Lactate (0.20-2.00) mmol/L Sodium (136-145) mmol/L Potassium (3.5-5.1) mmol/L Chloride (98-107) mmol/L Carbon Dioxide (21.0-32.0) mmol/L BUN (7.0-18.0) mg/dL Creatinine (0.6-1.0) mg/dL Est Cr Clr Drug Dosing Estimated GFR (MDRD) ml/min Glucose (74-106) mg/dL Calcium (8.5-10.1) mg/dL Magnesium (1.8-2.4) mg/dL Iron 110 (50-175) ug/dL TIBC 217 L (250-450) ug/dL % Saturation 50.69 (20-55) % Transferrin 152 L (200-400) ug/dL Ferritin 80 (8-252) ng/mL Total Bilirubin (0.2-1.0) mg/dL AST (15-37) IU/L ALT (14-63) IU/L Alkaline Phosphatase (46-116) U/L Troponin I (0.000-0.056) ng/mL Total Protein (6.4-8.2) g/dL Albumin (3.4-5.0) g/dL Globulin (2.6-4.0) g/dL Albumin/Globulin Ratio (0.9-1.6) Vitamin B12 (193-986) pg/mL Folate (8.60-58.90) ng/mL TSH 3rd Generation (0.36-3.74) uIU/mL Urine Color Urine Appearance Urine pH (5.0-8.0) Ur Specific [place] (1.001-1.035) Urine Protein (NEGATIVE) mg/dL Urine Glucose (UA) (NEGATIVE) mg/dL Urine Ketones (NEGATIVE) mg/dL Urine Occult Blood (NEGATIVE) Urine Nitrite (NEGATIVE) Urine Bilirubin (NEGATIVE) Urine Urobilinogen (<2.0) EU/dL Ur Leukocyte Esterase (NEGATIVE) Blood Type Antibody Screen Crossmatch 05/07/19 05/07/19 05/07/19 Range/Units 10:51 10:51 10:51 WBC (4.0-11.0) K/uL RBC (4.30-5.90) M/uL Hgb (12.0-16.0) g/dL Hct (36.0-46.0) % MCV (80.0-98.0) fL MCH (27.0-32.0) pg MCHC (31.0-37.0) g/dL RDW Std Deviation (28.0-62.0) fl RDW Coeff of Kat (11.0-15.0) % Plt Count (150-400) K/uL MPV (7.40-12.00) fL Neut % (Auto) (48.0-80.0) % Lymph % (Auto) (16.0-40.0) % [place] % (Auto) (0.0-15.0) % Eos % (Auto) (0.0-7.0) % Baso % (Auto) (0.0-1.5) % Neut # (Auto) (1.4-5.7) K/uL Lymph # (Auto) (0.6-2.4) K/uL [place] # (Auto) (0.0-0.8) K/uL Eos # (Auto) (0.0-0.7) K/uL Baso # (Auto) (0.0-0.1) K/uL Nucleated RBC % /100WBC Nucleated RBCs # K/uL Smear Path Review SENT TO PATHOLOGY Absolute Retic (20-80) K/uL Percent Retic (0.5-1.5) % Immature Retic Fraction % Lactate (0.20-2.00) mmol/L Sodium (136-145) mmol/L Potassium (3.5-5.1) mmol/L Chloride (98-107) mmol/L Carbon Dioxide (21.0-32.0) mmol/L BUN (7.0-18.0) mg/dL Creatinine (0.6-1.0) mg/dL Est Cr Clr Drug Dosing Estimated GFR (MDRD) ml/min Glucose (74-106) mg/dL Calcium (8.5-10.1) mg/dL Magnesium 1.8 (1.8-2.4) mg/dL Iron (50-175) ug/dL TIBC (250-450) ug/dL % Saturation (20-55) % Transferrin (200-400) ug/dL Ferritin (8-252) ng/mL Total Bilirubin (0.2-1.0) mg/dL AST (15-37) IU/L ALT (14-63) IU/L Alkaline Phosphatase (46-116) U/L Troponin I (0.000-0.056) ng/mL Total Protein (6.4-8.2) g/dL Albumin (3.4-5.0) g/dL Globulin (2.6-4.0) g/dL Albumin/Globulin Ratio (0.9-1.6) Vitamin B12 271 (193-986) pg/mL Folate 16.20 (8.60-58.90) ng/mL TSH 3rd Generation (0.36-3.74) uIU/mL Urine Color Urine Appearance Urine pH (5.0-8.0) Ur Specific [place] (1.001-1.035) Urine Protein (NEGATIVE) mg/dL Urine Glucose (UA) (NEGATIVE) mg/dL Urine Ketones (NEGATIVE) mg/dL Urine Occult Blood (NEGATIVE) Urine Nitrite (NEGATIVE) Urine Bilirubin (NEGATIVE) Urine Urobilinogen (<2.0) EU/dL Ur Leukocyte Esterase (NEGATIVE) Blood Type Antibody Screen Crossmatch 05/07/19 Range/Units 11:50 WBC (4.0-11.0) K/uL RBC (4.30-5.90) M/uL Hgb (12.0-16.0) g/dL Hct (36.0-46.0) % MCV (80.0-98.0) fL MCH (27.0-32.0) pg MCHC (31.0-37.0) g/dL RDW Std Deviation (28.0-62.0) fl RDW Coeff of Kat (11.0-15.0) % Plt Count (150-400) K/uL MPV (7.40-12.00) fL Neut % (Auto) (48.0-80.0) % Lymph % (Auto) (16.0-40.0) % [place] % (Auto) (0.0-15.0) % Eos % (Auto) (0.0-7.0) % Baso % (Auto) (0.0-1.5) % Neut # (Auto) (1.4-5.7) K/uL Lymph # (Auto) (0.6-2.4) K/uL [place] # (Auto) (0.0-0.8) K/uL Eos # (Auto) (0.0-0.7) K/uL Baso # (Auto) (0.0-0.1) K/uL Nucleated RBC % /100WBC Nucleated RBCs # K/uL Smear Path Review Absolute Retic (20-80) K/uL Percent Retic (0.5-1.5) % Immature Retic Fraction % Lactate (0.20-2.00) mmol/L Sodium (136-145) mmol/L Potassium (3.5-5.1) mmol/L Chloride (98-107) mmol/L Carbon Dioxide (21.0-32.0) mmol/L BUN (7.0-18.0) mg/dL Creatinine (0.6-1.0) mg/dL Est Cr Clr Drug Dosing Estimated GFR (MDRD) ml/min Glucose (74-106) mg/dL Calcium (8.5-10.1) mg/dL Magnesium (1.8-2.4) mg/dL Iron (50-175) ug/dL TIBC (250-450) ug/dL % Saturation (20-55) % Transferrin (200-400) ug/dL Ferritin (8-252) ng/mL Total Bilirubin (0.2-1.0) mg/dL AST (15-37) IU/L ALT (14-63) IU/L Alkaline Phosphatase (46-116) U/L Troponin I (0.000-0.056) ng/mL Total Protein (6.4-8.2) g/dL Albumin (3.4-5.0) g/dL Globulin (2.6-4.0) g/dL Albumin/Globulin Ratio (0.9-1.6) Vitamin B12 (193-986) pg/mL Folate (8.60-58.90) ng/mL TSH 3rd Generation (0.36-3.74) uIU/mL Urine Color Urine Appearance Urine pH (5.0-8.0) Ur Specific [place] (1.001-1.035) Urine Protein (NEGATIVE) mg/dL Urine Glucose (UA) (NEGATIVE) mg/dL Urine Ketones (NEGATIVE) mg/dL Urine Occult Blood (NEGATIVE) Urine Nitrite (NEGATIVE) Urine Bilirubin (NEGATIVE) Urine Urobilinogen (<2.0) EU/dL Ur Leukocyte Esterase (NEGATIVE) Blood Type A POSITIVE Antibody Screen NEGATIVE Crossmatch See Detail Meds: Medications Discontinued Medications Generic Name Dose Route Start Last Admin Trade Name Freq PRN Reason Stop Dose Admin Acetaminophen 650 mg 05/07/19 07:56 05/08/19 08:46 Tylenol PO 650 mg Q4H PRN Administration Pain (Mild 1-3)/fever Sodium Chloride 1,000 mls @ 999 mls/hr 05/07/19 02:30 05/07/19 02:42 Normal Saline IV 05/07/19 03:30 999 mls/hr .BOLUS ONE Administration Sodium Chloride 1,000 mls @ 999 mls/hr 05/07/19 04:30 05/07/19 04:34 Normal Saline IV 05/07/19 05:30 999 mls/hr .BOLUS ONE Administration Ceftriaxone Sodium 1 gm/ 50 mls @ 100 mls/hr 05/07/19 05:56 05/07/19 06:17 Sodium Chloride IV 05/07/19 06:25 100 mls/hr ONETIME ONE Administration Sodium Chloride 1,000 mls @ 125 mls/hr 05/07/19 06:00 05/07/19 08:20 Normal Saline IV 125 mls/hr ASDIRECTED SHEMAR Infusion Pantoprazole Sodium 40 mg/ 10 mls @ 300 mls/hr 05/07/19 11:15 05/07/19 12:39 Sodium Chloride IV Not Given Q12H SHEMAR Potassium Chloride/Sodium Chloride 1,000 mls @ 125 mls/hr 05/07/19 11:51 02/13 12:23 Normal Saline With 40 Meq Kcl IV 05/07/19 19:50 125 mls/hr ONETIME ONE Administration Pantoprazole Sodium 80 mg/ 10 mls @ 300 mls/hr 05/07/19 11:52 05/07/19 12:23 Sodium Chloride IV 05/07/19 11:53 300 mls/hr NOW ONE Administration Pantoprazole Sodium 40 mg/ 10 mls @ 300 mls/hr 05/07/19 23:00 05/07/19 23:14 Sodium Chloride IV 300 mls/hr Q12H SHEMAR Administration Ondansetron HCl 4 mg 05/07/19 07:56 05/08/19 04:03 Zofran IVPUSH 4 mg Q4H PRN Administration Nausea Sodium Chloride 10 ml 05/07/19 02:29 05/07/19 23:25 Saline Flush FLUSH 10 ml ASDIRECTED PRN Administration Keep Vein Open Sodium Chloride 2.5 ml 05/07/19 02:29 Saline Flush FLUSH ASDIRECTED PRN Keep Vein Open Tramadol HCl 50 mg 05/07/19 14:47 05/07/19 23:36 Ultram PO 50 mg TID PRN Administration pain Departure - Departure Time of Disposition: 03:30 Disposition: Refer to Observation Condition: Good Clinical Impression: Upper GI bleed - Discharge Information *PRESCRIPTION DRUG MONITORING PROGRAM REVIEWED*: Not Applicable *COPY OF PRESCRIPTION DRUG MONITORING REPORT IN PATIENT JOLLY: Not Applicable Sepsis Event Note - Evaluation Sepsis Screening Result: No Definite Risk - Focused Exam Date Exam was Performed: 06/19/19 Time Exam was Performed: 23:41
== END 2019-05-08 09:30 | DRG 812 ==
LOC: MW.ED 02:09 → MW.MS 05:56 → OBSVTOIN 12:12
PROVIDERS: ADMIT Internal Medicine; ATTEND Internal Medicine
PROC: 05HB33Z Insertion of Infusion Device into Right Basilic Vein, Percutaneous Approach (ICD-10-PCS; 2019-05-07)
PROC: B54MZZA Ultrasonography of Right Upper Extremity Veins, Guidance (ICD-10-PCS; 2019-05-07)
PROC: 30233N1 Transfusion of Nonautologous Red Blood Cells into Peripheral Vein, Percutaneous Approach (ICD-10-PCS; principal; 2019-05-08)
DX: D64.9 Anemia, unspecified (principal); K92.1 Melena; E86.0 Dehydration; E87.6 Hypokalemia; T39.395A Adverse effect of other nonsteroidal anti-inflammatory drugs [NSAID], initial encounter; G89.29 Other chronic pain; M54.9 Dorsalgia, unspecified; I10 Essential (primary) hypertension; H91.93 Unspecified hearing loss, bilateral; E66.9 Obesity, unspecified; Z88.8 Allergy status to other drugs, medicaments and biological substances; Z79.82 Long term (current) use of aspirin; Z68.31 Body mass index [BMI] 31.0-31.9, adult; Z79.899 Other long term (current) drug therapy
CPT/HCPCS: 36415; 71045; 80048; 80053; 81003; 82272; 82607; 82728; 82746; 83550; 83605; 83735; 84443; 84484 ×2; 85025 ×2; 85045; 86850; 86900; 86901; 86920 ×2; 86921 ×2; 86922 ×2; 87040 ×2; 87338; 88104; 93005; 96365; 99285; A9270; J0696; J7030 ×3; J7050; 36410; 36430; 82962; C9113; J2405; J3480; P9016

== ENCOUNTER 2023-01-31 10:51 | Observation (INO) | payer MEDICARE, OTHER ==
[2023-01-31] MEDS ORDERED: Iopamidol 755 MG/ML 500 ML Multipack Bottle IVPUSH STA (10:58)
[2023-01-31 11:54] LABS: BASOPHILS ABSOLUTE AUTO 0.03 K/uL (0.00-0.20); BASOPHILS PERCENT AUTO 0.4 % (0.0-1.0); EOSINOPHILS ABSOLUTE AUTO 0.11 K/uL (0.00-0.45); EOSINOPHILS PERCENT AUTO 1.3 % (0.0-6.0); HEMATOCRIT 38.1 % (37.0-47.0); HEMOGLOBIN 13.1 g/dL (12.0-16.0); IMMATURE GRAN ABSOLUTE AUTO 0.04 K/uL (0.00-0.05); IMMATURE GRAN PERCENT AUTO 0.5 % (0.0-0.4); LYMPHOCYTES ABSOLUTE AUTO 1.64 K/uL (1.00-4.80); MEAN CORPUSCULAR HEMOGLOBIN 31.6 pg (28.0-32.0); MEAN CORPUSCULAR HGB CONC 34.4 g/dL (32.0-36.0); MEAN PLATELET VOLUME 9.4 fL (9.4-12.3); MONOCYTES ABSOLUTE AUTO 0.76 K/uL (0.00-0.80); MONOCYTES PERCENT AUTO 9.3 % (0.0-8.0); NEUTROPHILS ABSOLUTE AUTO 5.63 K/uL (1.80-7.70); NEUTROPHILS PERCENT AUTO 68.5 % (41.0-71.0); PLATELET COUNT,PLT 288 K/uL (150-400); RED BLOOD CELL COUNT 4.14 M/uL (4.10-5.30); WHITE BLOOD CELL COUNT,WBC 8.21 K/uL (3.9-11.3)
[2023-01-31 11:55] LABS: INR 0.99 (0.86-1.11); PTT,PARTIAL THROMBOPLSTIN TIME 29.9 SEC (23.9-30.7)
[2023-01-31 12:12] LABS: A/G RATIO 1.1 (0.9-1.6); ALBUMIN 3.7 g/dL (3.4-5.0); BILIRUBIN TOTAL 0.4 mg/dL (0.2-1.0); CALCIUM 8.8 mg/dL (8.5-10.1); CARBON DIOXIDE,CO2 26.1 mmol/L (21.0-32.0); CREATININE 1.3 mg/dL (0.6-1.0); EST CRCL DRUG DOSING (CG) 43.89 mL/min; MAGNESIUM 1.7 mg/dL (1.8-2.4); POTASSIUM,K 4.2 mmol/L (3.5-5.1); PROTEIN TOTAL,TP 7.1 g/dL (6.4-8.2)
[2023-01-31] MEDS ORDERED: Sodium Chloride 0.9% 10 ML Syringe FLUSH PRN (12:39)
[2023-01-31] MEDS ORDERED: Acetaminophen 325 MG Tab PO PRN (12:39)
[2023-01-31] MEDS ORDERED: Sodium Chloride 0.9% 2.5 ML Syringe FLUSH PRN (12:39)
[2023-01-31] MEDS ORDERED: Ondansetron 4 MG/2 ML SDV IVPUSH PRN (12:39)
[2023-01-31 13:04] LABS: HEMOGLOBIN A1C 5.9 %
[2023-01-31 13:17] LABS: TSH ULTRASENSITIVE 1.61 uIU/mL (0.36-3.74)
[2023-01-31] MEDS ORDERED: Sodium Chloride 0.9% 1,000 ML IV SCH (15:15)
[2023-01-31] MEDS: Acetaminophen/Codeine 300-30 MG Tab PO SCH ×2 (16:07→22:08)
[2023-01-31 16:56] LABS: APPEARANCE,URINE CLEAR; BILIRUBIN,URINE NEGATIVE (NEGATIVE); COLOR,URINE YELLOW; GLUCOSE,URINE NEGATIVE (NEGATIVE); KETONES,URINE NEGATIVE (NEGATIVE); LEUKOCYTE ESTERASE,URINE NEGATIVE (NEGATIVE); NITRITE,URINE NEGATIVE (NEGATIVE); OCCULT BLOOD,URINE NEGATIVE (NEGATIVE); PH,URINE 5.5 (5.0-8.0); PROTEIN,URINE NEGATIVE (NEGATIVE); UROBILINOGEN,URINE 0.2 EU/dL (<2.0)
[2023-01-31 22:37] LABS: CALCIUM 8.6 mg/dL (8.5-10.1); CARBON DIOXIDE,CO2 29.4 mmol/L (21.0-32.0); CREATININE 1.4 mg/dL (0.6-1.0); EST CRCL DRUG DOSING (CG) 40.75 mL/min; POTASSIUM,K 4.3 mmol/L (3.5-5.1)
[2023-02-01] MEDS: Acetaminophen/Codeine 300-30 MG Tab PO SCH ×2 (05:51→13:44)
[2023-02-01 06:42] LABS: BASOPHILS ABSOLUTE AUTO 0.05 K/uL (0.00-0.20); BASOPHILS PERCENT AUTO 0.6 % (0.0-1.0); EOSINOPHILS ABSOLUTE AUTO 0.22 K/uL (0.00-0.45); EOSINOPHILS PERCENT AUTO 2.5 % (0.0-6.0); HEMOGLOBIN 13.3 g/dL (12.0-16.0); IMMATURE GRAN ABSOLUTE AUTO 0.03 K/uL (0.00-0.05); IMMATURE GRAN PERCENT AUTO 0.3 % (0.0-0.4); LYMPHOCYTES ABSOLUTE AUTO 2.21 K/uL (1.00-4.80); LYMPHOCYTES PERCENT AUTO 25.4 % (24.0-44.0); MEAN CORPUSCULAR HEMOGLOBIN 32.8 pg (28.0-32.0); MEAN CORPUSCULAR VOLUME 93.6 fL (83.0-99.0); MEAN PLATELET VOLUME 9.4 fL (9.4-12.3); MONOCYTES ABSOLUTE AUTO 0.73 K/uL (0.00-0.80); MONOCYTES PERCENT AUTO 8.4 % (0.0-8.0); NEUTROPHILS ABSOLUTE AUTO 5.46 K/uL (1.80-7.70); NEUTROPHILS PERCENT AUTO 62.8 % (41.0-71.0); PLATELET COUNT,PLT 269 K/uL (150-400); RED BLOOD CELL COUNT 4.06 M/uL (4.10-5.30)
[2023-02-01 07:13] LABS: CALCIUM 8.7 mg/dL (8.5-10.1); CREATININE 1.3 mg/dL (0.6-1.0); EST CRCL DRUG DOSING (CG) 43.89 mL/min; MAGNESIUM 1.8 mg/dL (1.8-2.4); POTASSIUM,K 4.2 mmol/L (3.5-5.1)
[2023-02-01] MEDS ORDERED: Aspirin 81 MG Tab.Chew PO SCH (09:30)
[2023-02-01] MEDS ORDERED: Clopidogrel 75 MG Tab PO SCH (14:15)
[2023-02-01 15:33] VITALS: BP 145/87; PULSE 87
[2023-02-01] MEDS ORDERED: atorvaSTATin 20 MG Tab PO SCH (21:00)
== END 2023-02-01 15:15 | disposition home or self-care (01) ==
LOC: MW.ED 10:51 → MW.MS 12:32
PROVIDERS: ADMIT Internal Medicine; ATTEND Internal Medicine
DX: G45.9 Transient cerebral ischemic attack, unspecified (principal); H91.93 Unspecified hearing loss, bilateral; I10 Essential (primary) hypertension; E87.1 Hypo-osmolality and hyponatremia; E66.9 Obesity, unspecified; Z68.30 Body mass index [BMI] 30.0-30.9, adult; Z96.21 Cochlear implant status; Z79.82 Long term (current) use of aspirin; Z79.899 Other long term (current) drug therapy; Z88.5 Allergy status to narcotic agent
CPT/HCPCS: 36415; 70450; 70496; 70498; 80048; 80053; 80061; 81003; 82570; 82947; 83036; 83735; 84300; 84443; 84484; 85025; 85610; 85730; 93005; 96360; 96361; 99285; A9270; G0378; J7030; Q9967; 93010; 99222; 99238

== ENCOUNTER 2023-03-20 13:07 | Emergency (ER) | payer MEDICARE, SELFPAY ==
[2023-03-20] MEDS ORDERED: Morphine 4 MG/ML Syringe IVPUSH ONE ×2 (13:14→15:14)
[2023-03-20] MEDS ORDERED: Ondansetron 4 MG/2 ML SDV IVPUSH ONE (13:14)
[2023-03-20] MEDS ORDERED: Ketorolac 30 MG/ML SDV IVPUSH ONE (13:14)
[2023-03-20] MEDS ORDERED: Sodium Chloride 0.9% 1,000 ML IV ONE (13:14)
[2023-03-20 13:49] LABS: HEMATOCRIT 36.6 % (37.0-47.0); HEMOGLOBIN 12.8 g/dL (12.0-16.0); MEAN CORPUSCULAR HEMOGLOBIN 31.1 pg (28.0-32.0); MEAN CORPUSCULAR VOLUME 88.8 fL (83.0-99.0); MEAN PLATELET VOLUME 9.7 fL (9.4-12.3); PLATELET COUNT,PLT 447 K/uL (150-400); RED BLOOD CELL COUNT 4.12 M/uL (4.10-5.30)
[2023-03-20 13:55] LABS: WHITE BLOOD CELL COUNT,WBC 46.37 K/uL (3.9-11.3)
[2023-03-20 14:16] LABS: LACTIC ACID 1.3 mmol/L (0.4-2.0)
[2023-03-20 14:18] LABS: A/G RATIO 0.3 (0.9-1.6); ALBUMIN 1.9 g/dL (3.4-5.0); CARBON DIOXIDE,CO2 23.5 mmol/L (21.0-32.0); CREATININE 1.1 mg/dL (0.6-1.0); EST CRCL DRUG DOSING (CG) 51.86 mL/min; POTASSIUM,K 4.4 mmol/L (3.5-5.1); PROTEIN TOTAL,TP 7.5 g/dL (6.4-8.2)
[2023-03-20 14:23] LABS: BAND ABSOLUTE MAN 2.32; BAND PERCENT MAN 5 %; LYMPHOCYTES ABSOLUTE MAN 1.85 K/uL (1.00-4.80); LYMPHOCYTES PERCENT MAN 4 % (24-44); METAMYELOCYTE ABSOLUTE MAN 0.46; METAMYELOCYTE PERCENT MAN 1 %; MONOCYTES ABSOLUTE MAN 0.93 K/uL (0.00-0.80); MONOCYTES PERCENT MAN 2 % (0-8); SEG NEUTROPHILS ABSOLUTE MAN 40.81 K/uL (1.80-7.70); SEG NEUTROPHILS PERCENT MAN 88 % (41-71)
[2023-03-20] MEDS ORDERED: Piperacillin/Tazobactam 4.5 GM in Sodium Chloride 0.9% 100 ML IV ONE (14:40)
[2023-03-20] MEDS ORDERED: Iopamidol 755 MG/ML 500 ML Multipack Bottle IVPUSH STA (14:51)
[2023-03-20] MEDS ORDERED: Lidocaine 1% 5 ML VIAL ONE (15:30)
[2023-03-20] MEDS ORDERED: HYDROmorphone 1 MG/ML Syringe IVPUSH ONE (18:03)
[2023-03-20 19:12] LABS: APPEARANCE,URINE SLT CLOUDY; GLUCOSE,URINE NEGATIVE (NEGATIVE); KETONES,URINE TRACE mg/dL (NEGATIVE); LEUKOCYTE ESTERASE,URINE NEGATIVE (NEGATIVE); NITRITE,URINE NEGATIVE (NEGATIVE); OCCULT BLOOD,URINE MODERATE (NEGATIVE); PH,URINE 5.5 (5.0-8.0); PROTEIN,URINE 30 mg/dL (NEGATIVE)
[2023-03-20 19:19] LABS: BILIRUBIN,URINE MODERATE (NEGATIVE); COLOR,URINE AMBER
[2023-03-20 19:20] LABS: AMORPHOUS SEDIMENT,URINE MODERATE (NEGATIVE); BACTERIA,URINE FEW (NEGATIVE); EPITHELIAL CELLS,URINE MODERATE (NONE-FEW); RBC,URINE 0-3 (0-2/HPF)
[2023-03-20 22:30] VITALS: BP 116/61; PULSE 102
== END 2023-03-20 20:58 ==
LOC: MW.ED 13:07
DX: J18.9 Pneumonia, unspecified organism (principal); J90 Pleural effusion, not elsewhere classified; I10 Essential (primary) hypertension; E66.9 Obesity, unspecified; Z88.8 Allergy status to other drugs, medicaments and biological substances; Z79.899 Other long term (current) drug therapy; Z68.31 Body mass index [BMI] 31.0-31.9, adult
CPT/HCPCS: 36415; 71260; 74177; 80053; 81001; 83605; 83690; 83735; 84484; 85025; 87040; 96361; 96365; 96375; 96376; 99285; J1170; J1885; J2270; J2405; J2543; J3490; J7030; Q9967; 93010; 99291; 99292

== ENCOUNTER 2023-04-17 20:08 | Emergency (ER) | payer MEDICARE, SELFPAY ==
[2023-04-17] MEDS: Sodium Chloride 0.9% 10 ML Syringe FLUSH PRN (20:51)
[2023-04-17] MEDS: Sodium Chloride 0.9% 2.5 ML Syringe FLUSH PRN (20:51)
[2023-04-17 21:34] LABS: BASOPHILS ABSOLUTE AUTO 0.06 K/uL (0.00-0.20); BASOPHILS PERCENT AUTO 0.5 % (0.0-1.0); EOSINOPHILS ABSOLUTE AUTO 0.09 K/uL (0.00-0.45); EOSINOPHILS PERCENT AUTO 0.7 % (0.0-6.0); HEMATOCRIT 32.8 % (37.0-47.0); HEMOGLOBIN 10.9 g/dL (12.0-16.0); IMMATURE GRAN ABSOLUTE AUTO 0.08 K/uL (0.00-0.05); IMMATURE GRAN PERCENT AUTO 0.6 % (0.0-0.4); LYMPHOCYTES ABSOLUTE AUTO 3.67 K/uL (1.00-4.80); MEAN CORPUSCULAR HEMOGLOBIN 30.4 pg (28.0-32.0); MEAN CORPUSCULAR HGB CONC 33.2 g/dL (32.0-36.0); MEAN CORPUSCULAR VOLUME 91.4 fL (83.0-99.0); MEAN PLATELET VOLUME 9.5 fL (9.4-12.3); MONOCYTES ABSOLUTE AUTO 1.06 K/uL (0.00-0.80); MONOCYTES PERCENT AUTO 8.1 % (0.0-8.0); NEUTROPHILS ABSOLUTE AUTO 8.13 K/uL (1.80-7.70); NEUTROPHILS PERCENT AUTO 62.1 % (41.0-71.0); PLATELET COUNT,PLT 343 K/uL (150-400); RED BLOOD CELL COUNT 3.59 M/uL (4.10-5.30); WHITE BLOOD CELL COUNT,WBC 13.09 K/uL (3.9-11.3)
[2023-04-17 21:36] LABS: CORONAVIRUS COVID-19 NAA NEGATIVE (NEGATIVE); INFLUENZA A NAA NEGATIVE (NEGATIVE); INFLUENZA B NAA NEGATIVE (NEGATIVE); RESPIRATORY SYNCYTIAL VIR NAA NEGATIVE (NEGATIVE)
[2023-04-17 22:05] LABS: A/G RATIO 0.5 (0.9-1.6); ALBUMIN 2.7 g/dL (3.4-5.0); BILIRUBIN TOTAL 0.5 mg/dL (0.2-1.0); CALCIUM 8.7 mg/dL (8.5-10.1); CARBON DIOXIDE,CO2 22.1 mmol/L (21.0-32.0); EST CRCL DRUG DOSING (CG) 53.09 mL/min; POTASSIUM,K 4.1 mmol/L (3.5-5.1); PROTEIN TOTAL,TP 7.7 g/dL (6.4-8.2)
[2023-04-17 22:09] LABS: LACTIC ACID 0.7 mmol/L (0.4-2.0)
[2023-04-17] MEDS ORDERED: Iopamidol 755 MG/ML 500 ML Multipack Bottle IVPUSH STA (23:00)
[2023-04-18 00:08] VITALS: BP 149/93; PULSE 92
== END 2023-04-18 00:34 | disposition home or self-care (01) ==
LOC: MW.ED 20:08
DX: J90 Pleural effusion, not elsewhere classified (principal); R09.02 Hypoxemia; I10 Essential (primary) hypertension; Z79.82 Long term (current) use of aspirin; Z79.899 Other long term (current) drug therapy; Z88.8 Allergy status to other drugs, medicaments and biological substances
CPT/HCPCS: 0241U; 36415; 71045; 80053; 83605; 83880; 84484; 85025; 85379; 87040; 99285; J3490

== ENCOUNTER 2024-02-22 13:23 | Emergency (ER) | payer MEDICARE ==
[2024-02-22] MEDS: Pantoprazole 80 MG in Sodium Chloride 0.9% 10 ML IVPUSH ONE (14:39)
[2024-02-22 14:54] LABS: BASOPHILS ABSOLUTE AUTO 0.02 K/uL (0.00-0.20); BASOPHILS PERCENT AUTO 0.2 % (0.0-1.0); EOSINOPHILS ABSOLUTE AUTO 0.02 K/uL (0.00-0.45); EOSINOPHILS PERCENT AUTO 0.2 % (0.0-6.0); HEMATOCRIT 23.8 % (37.0-47.0); HEMOGLOBIN 7.9 g/dL (12.0-16.0); IMMATURE GRAN ABSOLUTE AUTO 0.05 K/uL (0.00-0.05); IMMATURE GRAN PERCENT AUTO 0.6 % (0.0-0.4); LYMPHOCYTES ABSOLUTE AUTO 1.96 K/uL (1.00-4.80); LYMPHOCYTES PERCENT AUTO 23.3 % (24.0-44.0); MEAN CORPUSCULAR HEMOGLOBIN 31.3 pg (28.0-32.0); MEAN CORPUSCULAR HGB CONC 33.2 g/dL (32.0-36.0); MEAN CORPUSCULAR VOLUME 94.4 fL (83.0-99.0); MONOCYTES ABSOLUTE AUTO 0.54 K/uL (0.00-0.80); MONOCYTES PERCENT AUTO 6.4 % (0.0-8.0); NEUTROPHILS ABSOLUTE AUTO 5.83 K/uL (1.80-7.70); NEUTROPHILS PERCENT AUTO 69.3 % (41.0-71.0); PLATELET COUNT,PLT 233 K/uL (150-400); RED BLOOD CELL COUNT 2.52 M/uL (4.10-5.30); WHITE BLOOD CELL COUNT,WBC 8.42 K/uL (3.9-11.3)
[2024-02-22 15:09] LABS: INR 1.05 (0.86-1.11)
[2024-02-22 15:18] LABS: ALANINE AMINOTRANSFERASE,ALT 13 IU/L (14-63); ALBUMIN 3.1 g/dL (3.4-5.0); ALKALINE PHOSPHATASE 56 U/L (46-116); ASPARTATE AMNIOTRANSFERASE,AST 11 IU/L (15-37); BILIRUBIN TOTAL 0.4 mg/dL (0.2-1.0); BLOOD UREA NITROGEN,BUN 40 mg/dL (7.0-18.0); CALCIUM 8.4 mg/dL (8.5-10.1); CARBON DIOXIDE,CO2 24.8 mmol/L (21.0-32.0); CHLORIDE,CL 103 mmol/L (98-107); CREATININE 1.2 mg/dL (0.6-1.0); GLUCOSE RANDOM 115 mg/dL (74-106); LIPASE 47 U/L (16-77); PROTEIN TOTAL,TP 6.2 g/dL (6.4-8.2); SODIUM,NA 135 mmol/L (136-145)
[2024-02-22 15:19] LABS: ESTIMATED GFR 49 mL/min (>60)
[2024-02-22] MEDS: oxyCODONE 5 MG Tab PO ONE (15:59)
[2024-02-22 18:14] VITALS: BP 116/63; PULSE 78
== END 2024-02-22 18:37 ==
LOC: MW.ED 13:23
DX: K92.2 Gastrointestinal hemorrhage, unspecified (principal); Z88.8 Allergy status to other drugs, medicaments and biological substances; Z79.899 Other long term (current) drug therapy
CPT/HCPCS: 36415; 71045; 80048; 80076; 83690; 84484; 85025; 85610; 85730; 86850; 86900; 86901; 93005; 96374; 99285; A9270; J2470; J3490